=== PATIENT | female | born 1935 | race Caucasian/White ===

== ENCOUNTER 2017-05-02 12:21 | Inpatient (IN) ==
[2017-05-05] MEDS ORDERED: *HR* OxyCODONE/APAP 5/325 TABLET PO PRN (16:51)
--- NOTE | 2017-05-05 18:17 | Internal Med History&Physical ---
Date of Encounter: 05/05/17 Time of Encounter: 19:56 Assessment and Plan (1) History of total left hip arthroplasty Current visit: Yes Status: Acute she is here for PT, OT rehab (2) GERD (gastroesophageal reflux disease) Current visit: Yes Status: Acute will continue her pepcid Qualifiers: Esophagitis presence: esophagitis presence not specified Qualified Code(s) : K21.9 - Gastro-esophageal reflux disease without esophagitis (3) Femoral neck fracture Current visit: No Status: Acute s/p hip arthroplasty here for rehab Qualifiers: Encounter type: initial encounter Fracture type: closed Laterality: left Qualified Code(s): S72.002A - Fracture of unspecified part of neck of left femur, initial encounter for closed fracture (4) UTI (urinary tract infection) Current visit: No Status: Acute she grew psudomonas and sensitive to levaquin. on levaquin Qualifiers: Urinary tract infection type: acute cystitis Hematuria presence: with hematuria Qualified Code(s): N30.01 - Acute cystitis with hematuria (5) Essential hypertension Current visit: No Status: Chronic will continue home medication (6) Osteoporosis Current visit: No Status: Chronic will continue her calcium and her alendronate, will have to use with caution given the gastritis on EGD and anemia. Qualifiers: Osteoporosis type: age-related Presence of current pathological fracture: unspecified Qualified Code(s): M81.0 - Age-related osteoporosis without current pathological fracture (7) Rheumatoid arthritis Current visit: No Status: Chronic will continue prednisone, MTX and plaquanil Qualifiers: Rheumatoid arthritis location: multiple sites Rheumatoid factor presence: unspecified presence Qualified Code(s): M06.9 - Rheumatoid arthritis, unspecified (8) Acute blood loss anemia Current visit: No Status: Suspected s/p transfusion hg has been stable since had colonoscopy and egd with gastritis she was on iv ppi will put on po ppi and d/c zantac Internal Medicine - H&P: HPI Chief complaint: here for rehab Admitted From: Hospital to Hospital Transfer History of present illness: Ms. Hawthorne is a 82 year old female who had a fall with a left humeral fracture. she had a left total shoulder replacement on 04/19/17. she had fallen at home sweeping and was tangled in the cord. She had another fall at home going to her postop appt. she was in the doorway, heard a very loud crack, and had a left hip fracture and had a left hip arthroplasty on 04/29/17. she had post op anemia and had and egd and colonoscopy with colon polyps and gastris. she was given iv ppi at [place]. her hg remained stable after a transfusion. she also had a urine culture that grew pseudomonas sensitive to levaquin. she had one dose of iv levaquin yesterday and will continue po levaquin here. she had dysuria only one day, none now. just had a stool. pain is controlled Past Med Surg Social Fam HX - Past Medical History Medical history: arthritis (rheumatoid), GERD, hypertension, osteoporosis, RA, other (pulmonary fibrosis) Psychiatric history: no psych history - Past Surgical History Surgical History: , hysterectomy, orthopedic, other (wrist 1991, [facility] 2014 thumb fusion, 04/19/17 left shoulder replacement for fracture, 04/29/17 left hip arthroplasty ), other (05/03/17 EGD gastritis, 05/04/17 colonoscopy polyps ) - Social History Smoking Status: Never smoker Smokeless Tobacco Status: No Alcohol use: none Drug use: none - Family History Mother Living Status: Hx Family Cardiac Disorders: Yes (Hypertension) Hx Family Endocrine Disorder: Yes (dm2) Father Living Status: Age at : 100 Cause of : old age Internal Medicine - H&P: Meds Alendronate Sodium 70 mg PO SA 11/30/14 [History] Calcium Carbonate/Vitamin D3 [Calcium 600 + D Tablet] 1 each PO DAILY 11/30/14 [ History] Hydroxychloroquine [Plaquenuil] 200 mg PO DAILY 11/30/14 [History] Methotrexate [Otrexup] 7.5 mg PO SA 11/30/14 [History] PredniSONE 5 mg PO DAILY 11/30/14 [History] Ranitidine HCl [Zantac] 150 mg PO DAILY 11/30/14 [History] Calcium/Vit B12/FA/Pyridoxine [Folic Acid-Vit B6-Vit B12 Tab] 1 each PO DAILY [History] Losartan/Hydrochlorothiazide [Hyzaar 100-25 Tablet] 1 each PO DAILY 06/06/15 [ History] 3 Allergy/AdvReac Type Severity Reaction Status Date / Time No Known Allergies Allergy Verified 04/19/17 11:38 All Systems PM: A 10-system review of systems was performed and is negative for pertinent findings except as documented above in the HPI. here with her - Constitutional Constitutional: falls, no chills, no fever(s), no malaise, no weakness - EENT Eyes: no blurry vision, no change in vision - Cardiovascular Cardiovascular ROS IM: no chest pain, no dyspnea, no irregular heart rhythm, no orthopnea, no palpitations, no syncope - Respiratory Respiratory: no cough, no dyspnea, no wheezing - Gastrointestinal Gastrointestinal: no constipation, no hematochezia, no loose stools, no melena, no nausea, no vomiting - Genitourinary Genitourinary: no urinary incontinence - Musculoskeletal Musculoskeletal ROS IM: no muscle weakness - Integumentary Integumentary IM: no pruritus, no rash - Neurological Neurological ROS: no numbness - Psychiatric Psychiatric: no confusion - Constitutional Vitals: Temp Pulse Resp BP Pulse Ox 97.7 F 70 16 141/76 97 05/05/17 14:34 05/05/17 14:34 05/05/17 14:34 05/05/17 14:34 05/05/17 14:34 General appearance: Present: A&O X 3 - Head Head exam: Present: atraumatic, normocephalic - Neck Neck exam general surgery: Present: normal inspection, supple, trachea midline - Respiratory Respiratory exam: Present: CTAB - Cardiovascular Cardiovascular exam: Present: RRR. Absent: systolic murmur - GI/Abdominal GI/Abdominal exam: Present: normal bowel sounds, soft, no peritoneal signs. Absent: guarding, tenderness - Extremities Exam Extremities exam: Present: normal capillary refill, warm. Absent: pedal edema - Incison Incision: Present: clean and dry, intact (on the left shoulder and the left hip) - Skin Skin exam: Present: dry, normal color, warm. Absent: rash
[2017-05-05] MEDS: levoFLOXacin 500 MG TABLET PO SCH (21:26)
[2017-05-05] MEDS: Acetaminophen 325 MG TABLET PO PRN (21:27)
[2017-05-05] MEDS: *HR* OxyCODONE/APAP 5/325 TABLET PO PRN (23:01)
[2017-05-06 04:38] LABS: Basophils % 0.4 %; Eosinophils # 0.4 K/mcL (0.0-0.6); Eosinophils % 4.1 %; Hematocrit 30.1 % (35.3-44.9); Hemoglobin 9.8 g/dL (11.5-15.4); Immature Granulocytes % 3.7 % (0-4); Lymphocytes # 1.5 K/mcL (0.6-4.6); Lymphocytes % 17.1 %; Mean Corpuscular HGB Conc 32.6 g/dL (31.6-35.5); Mean Corpuscular Volume 104.5 fL (83.0-100.0); Mean Platelet Volume 8.8 fL (9.4-12.4); Monocytes # 1.2 K/mcL (0.0-1.3); Monocytes % 13.7 %; Neutrophils # 5.2 K/mcL (1.6-8.9); Platelet Count 266 K/mcL (140-400); Red Blood Count 2.88 M/mcL (3.82-4.97); Red Cell Distribution Width 15.2 % (11.5-14.5)
[2017-05-06 04:39] LABS: INR 1.1; Prothrombin Time 11.6 Seconds (9.4-12.1)
[2017-05-06 04:42] LABS: Activated Partial Thrombo Time 28.5 Seconds (26.0-36.0)
[2017-05-06 04:50] LABS: BUN/Creatinine Ratio 16 (6-26); Blood Urea Nitrogen 15 mg/dL (8-23); Calcium 8.8 mg/dL (8.6-10.3); Carbon Dioxide 28 mEq/L (23-29); Chloride 100 mEq/L (98-107); Glucose 101 mg/dL (70-105); Osmolality,Calculated 279 (280-300); Potassium 3.9 mEq/L (3.5-5.1); Sodium 134 mEq/L (136-145); eGFR For African Americans > 60 (> 60); eGFR For Non-African Americans 56 (> 60)
[2017-05-06] MEDS: *HR* OxyCODONE/APAP 5/325 TABLET PO PRN ×3 (06:45→21:54)
--- NOTE | 2017-05-06 07:06 | Internal Med Progress Note ---
Date of Encounter: 05/06/17 Time of Encounter: 07:05 - Assessment and plan (1) History of total left hip arthroplasty Current Visit: Yes Status: Acute Assessment and plan: Patient is a history of hip fracture and total hip arthroplasty now. She has Percocet every 4 hours for pain. She has started physical therapy. Transfer orders said she can be weightbearing as tolerated. (2) History of left shoulder fracture Current Visit: Yes Status: Acute Assessment and plan: Patient status post left shoulder fracture and reverse shoulder replacement. She has Percocet for pain. She is already started therapies. On the transfer orders it was requested "continue sling for left shoulder. Okay for passive range of motion exercises, forward elevation to 120 degrees, external rotation to 30 degrees. No internal rotation." (3) Rheumatoid arthritis Current Visit: Yes Status: Chronic Assessment and plan: Chronically she had with her arthritis, particularly of the hands. This certainly limits her ability to use a walker or cane equipment because of her hang grasp issues. Qualifiers: Rheumatoid arthritis location: multiple sites Rheumatoid factor presence: unspecified presence Qualified Code(s): M06.9 - Rheumatoid arthritis, unspecified (4) Essential hypertension Current Visit: No Status: Chronic Assessment and plan: Blood pressure is under adequate control. Continue her current medications (5) Osteoporosis Current Visit: No Status: Chronic Assessment and plan: continue continue with alendronate Qualifiers: Osteoporosis type: age-related Presence of current pathological fracture: unspecified Qualified Code(s): M81.0 - Age-related osteoporosis without current pathological fracture (6) Acute blood loss anemia Current Visit: No Status: Suspected Assessment and plan: Her hemoglobin is staying stable after her transfusion. It was reported that she had gastritis and colon polyps but no active hemorrhage. She was transferred to us on H2 jeremiah. She is now on PPI. No melena or hematochezia. No abdominal pain. (7) UTI (urinary tract infection) Current Visit: No Status: Acute Assessment and plan: She had a urine culture growing Pseudomonas. She denies any urinary symptoms. She is currently on Levaquin. Qualifiers: Urinary tract infection type: acute cystitis Hematuria presence: with hematuria Qualified Code(s): N30.01 - Acute cystitis with hematuria - Subjective Interval history: Patient thinks that she is doing well. She denies any cardiac or respiratory symptoms. No constipation issues at this time. She thinks the pain medication is adequate. She obviously has pain in the shoulder and the hip. She was pleased that she was able to walk with assistance around the bed yesterday with therapy. She denies any acute symptoms currently. - Constitutional Vitals: Temp Pulse Resp BP Pulse Ox 97.7 F 66 17 114/63 97 05/06/17 05:44 05/06/17 05:44 05/06/17 05:44 05/06/17 05:44 05/06/17 05:44 General appearance: Present: A&O X 3, no acute distress, answers questions appropriately - Respiratory Additional comments: Scattered fibrotic/ atelectatic-type crackles heard throughout. No respiratory distress. No wheezing. - Cardiovascular Cardiovascular exam: Present: RRR, +S1, +S2. Absent: systolic murmur - GI/Abdominal GI/Abdominal exam: Present: soft. Absent: distended, mass, tenderness - Extremities Exam Additional comments: Left shoulder shows dressing intact. Small amount of dried blood is noted. No significant bruising. Has appropriate tenderness. Good range of motion at the elbow. I did not remove the sling. Left lateral hip shows dressing to be intact with small amount of dried blood. No significant bruising. Has appropriate tenderness. There is no lower extremity edema. No calf tenderness. - Incison Comments: Left shoulder incision shows dressing intact and clean and dry. Left lateral hip incision shows dressing intact and clean and dry. Internal Medicine: Result - Labs CBC & Chem 7: 05/06/17 04:19 05/06/17 04:19 Labs: Short CBC 05/06/17 Range/Units 04:19 WBC 8.5 (4.3-11.1) K/mcL Hgb 9.8 L (11.5-15.4) g/dL Hct 30.1 L (35.3-44.9) % Plt Count 266 (140-400) K/mcL Neutrophils # 5.2 (1.6-8.9) K/mcL BMP 05/06/17 04:19 Sodium 134 L Potassium 3.9 Chloride 100 Carbon Dioxide 28 BUN 15 Creatinine 0.95 Glucose 101 Calcium 8.8 Hemoglobin is stable. Electrolytes and renal function unremarkable except for minimal hyponatremia. - ABG Interpretation ABG results: PT/INR, D-dimer PT 11.6 Seconds (9.4-12.1) 05/06/17 04:19 - VTE Documentation of Mechanical Device: Graduated compression elastic hosiery Consult Discharge Plan - Plan Referrals: Imer Marin MD [Primary Care Provider] -
[2017-05-06] MEDS ORDERED: Famotidine 20 MG TABLET PO SCH (09:00)
[2017-05-06] MEDS: Losartan/HCTZ 50-12.5 TABLET PO SCH (09:22)
[2017-05-06] MEDS: predniSONE 5 MG TABLET PO SCH (09:22)
[2017-05-06] MEDS: VIT B12 PO SCH (09:23)
[2017-05-06] MEDS: CALCIUM PO SCH (09:23)
[2017-05-06] MEDS: VITAMIN D3 PO SCH (09:23)
[2017-05-06] MEDS: PYRIDOXINE PO SCH (09:23)
[2017-05-06] MEDS: [UNRECOGNIZED DRUG - OTHER] PO SCH (09:23)
[2017-05-06] MEDS: CALCIUM CARBONATE PO SCH (09:23)
[2017-05-06] MEDS: *HR* Enoxaparin 40 MG/0.4 ML SYRINGE SQ SCH (21:53)
[2017-05-06] MEDS: levoFLOXacin 500 MG TABLET PO SCH (21:53)
[2017-05-07] MEDS: Acetaminophen 325 MG TABLET PO PRN (00:54)
[2017-05-07] MEDS: *HR* OxyCODONE/APAP 5/325 TABLET PO PRN ×5 (02:18→20:57)
[2017-05-07] MEDS: Losartan/HCTZ 50-12.5 TABLET PO SCH (10:44)
[2017-05-07] MEDS: predniSONE 5 MG TABLET PO SCH (10:45)
[2017-05-07] MEDS: VIT B12 PO SCH (10:45)
[2017-05-07] MEDS: *HR* Enoxaparin 40 MG/0.4 ML SYRINGE SQ SCH (10:45)
[2017-05-07] MEDS: CALCIUM CARBONATE PO SCH (10:45)
[2017-05-07] MEDS: [UNRECOGNIZED DRUG - OTHER] PO SCH (10:45)
[2017-05-07] MEDS: PYRIDOXINE PO SCH (10:45)
[2017-05-07] MEDS: VITAMIN D3 PO SCH (10:45)
[2017-05-07] MEDS: CALCIUM PO SCH (10:45)
--- NOTE | 2017-05-07 14:15 | Internal Med Progress Note ---
Date of Encounter: 05/07/17 Time of Encounter: 14:15 - Assessment and plan (1) Femoral neck fracture Current Visit: No Status: Acute Assessment and plan: Stable, postoperatively, without sign of complication. Qualifiers: Encounter type: initial encounter Fracture type: closed Laterality: left Qualified Code(s): S72.002A - Fracture of unspecified part of neck of left femur, initial encounter for closed fracture (2) Essential hypertension Current Visit: No Status: Chronic Assessment and plan: Clinically stable. We will continue home regimen and follow. (3) Rheumatoid arthritis Current Visit: Yes Status: Chronic Assessment and plan: Apparently stable on chronic regimen. Qualifiers: Rheumatoid arthritis location: multiple sites Rheumatoid factor presence: unspecified presence Qualified Code(s): M06.9 - Rheumatoid arthritis, unspecified (4) Acute blood loss anemia Current Visit: No Status: Suspected Assessment and plan: Stable. (5) LGI bleed Current Visit: No Status: Acute Assessment and plan: Stable on acid suppression. (6) DVT prophylaxis Current Visit: No Status: Resolved Assessment and plan: I discussed with Dr. Oro and we began enoxaparin. (7) History of left shoulder fracture Current Visit: Yes Status: Acute (8) Atelectasis Current Visit: Yes Status: Acute Assessment and plan: Advanced directive patient in deep breathing exercises as well as continued use of her incentive spirometry. - Time Spent With Patient 25 - 35 minutes - Subjective Interval history: Patient is without complaint or acute issues. Reviewed her clinical course with patient and family. No new issues. Patient has no complaint of chest discomfort, dyspnea, orthopnea, palpitations, nausea or vomiting, constipation or diarrhea, other changes in bowel habits, difficulty with urination, rash or itching, or other new complaints, except as mentioned above. Review of systems is otherwise unremarkable. - Constitutional Vitals: Temp Pulse Resp BP Pulse Ox 97.9 F 85 14 128/75 96 05/07/17 10:43 05/07/17 10:43 05/07/17 10:43 05/07/17 10:43 05/07/17 10:43 General appearance: Present: A&O X 3, no acute distress, answers questions appropriately Exam: Examination: (Except as mentioned above): General: In no apparent distress. Alert and oriented 3. Nondiaphoretic. Head: Atraumatic and normocephalic. Respiratory: No use of accessory muscles. She has left basilar rales. Normal airflow. Cardiovascular: Regular rate and rhythm without murmur appreciated. Abdomen: Bowel sounds are normal. No hepatosplenomegaly mass or tenderness appreciated. Patient is examined upright in chair and this also limits exam. Extremities: No cyanosis clubbing or edema. Skin: Warm and non-diaphoretic with no new lesions noted. Internal Medicine: Result - Labs CBC & Chem 7: 05/06/17 04:19 05/06/17 04:19 - ABG Interpretation ABG results: PT/INR, D-dimer PT 11.6 Seconds (9.4-12.1) 05/06/17 04:19 - VTE Documentation of Mechanical Device: Graduated compression elastic hosiery Consult Discharge Plan - Plan Referrals: Imer Marin MD [Primary Care Provider] -
[2017-05-07] MEDS ORDERED: (Alendronate Sodium [Alendronate Sodium] 70 MG) PO SCH (16:50)
[2017-05-07] MEDS ORDERED: *HR* Methotrexate 2.5 MG TABLET PO SCH ×2 (16:50)
[2017-05-07] MEDS: levoFLOXacin 250 MG TABLET PO SCH (20:57)
[2017-05-08] MEDS: *HR* OxyCODONE/APAP 5/325 TABLET PO PRN ×4 (00:33→21:18)
[2017-05-08] MEDS: *HR* Enoxaparin 40 MG/0.4 ML SYRINGE SQ SCH (05:30)
--- NOTE | 2017-05-08 07:32 | Internal Med Progress Note ---
Date of Encounter: 05/08/17 Time of Encounter: 07:30 - Assessment and plan (1) Femoral neck fracture Current Visit: No Status: Acute Assessment and plan: Stable, postoperatively, without sign of complication except atelectasis. Qualifiers: Encounter type: initial encounter Fracture type: closed Laterality: left Qualified Code(s): S72.002A - Fracture of unspecified part of neck of left femur, initial encounter for closed fracture (2) Essential hypertension Current Visit: No Status: Chronic Assessment and plan: Clinically stable. We will continue home regimen and follow. (3) Rheumatoid arthritis Current Visit: Yes Status: Chronic Assessment and plan: Apparently stable on chronic regimen. Qualifiers: Rheumatoid arthritis location: multiple sites Rheumatoid factor presence: unspecified presence Qualified Code(s): M06.9 - Rheumatoid arthritis, unspecified (4) Acute blood loss anemia Current Visit: No Status: Suspected Assessment and plan: Stable. Should have repeat labs, tomorrow. (5) LGI bleed Current Visit: No Status: Acute Assessment and plan: Stable on acid suppression. No symptoms, currently. (6) DVT prophylaxis Current Visit: No Status: Resolved Assessment and plan: She is on Lovenox. (7) History of left shoulder fracture Current Visit: Yes Status: Acute Assessment and plan: Clinically stable. Therapies to continue. (8) Atelectasis Current Visit: Yes Status: Acute Assessment and plan: I instructed patient in deep breathing exercises as well as continued use of her incentive spirometry, again. Because of her worsening rales at bases, we will verify no congestive heart failure or other pulmonary abnormality with a chest x-ray. - Time Spent With Patient 25 - 35 minutes - Subjective Interval history: Patient and nursing notes indicate that she is having significant pain with significant use of opioids. She has been using her incentive spirometry, as instructed, denies dyspnea or chest discomfort. She denies other acute issues. Patient has no complaint of chest discomfort, dyspnea, orthopnea, palpitations, nausea or vomiting, constipation or diarrhea, other changes in bowel habits, difficulty with urination, rash or itching, or other new complaints, except as mentioned above. Review of systems is otherwise unremarkable. - Constitutional Vitals: Temp Pulse Resp BP Pulse Ox 97.8 F 75 16 102/61 96 05/08/17 07:00 05/08/17 07:00 05/08/17 07:00 05/08/17 07:00 05/08/17 07:00 General appearance: Present: A&O X 3, no acute distress, answers questions appropriately Exam: Examination: (Except as mentioned above): General: In no apparent distress. Alert and oriented 3. Nondiaphoretic. Head: Atraumatic and normocephalic. Respiratory: No use of accessory muscles. Lungs now have bibasilar rales, worse on the left. Normal airflow. Cardiovascular: Regular rate and rhythm without murmur appreciated. Abdomen: Bowel sounds are normal. No hepatosplenomegaly mass or tenderness appreciated. Obese and therefore difficult to palpate deeply. Extremities: No cyanosis clubbing or edema. Left upper extremity is in a sling , as before. Distal neurovascular function is intact. Skin: Warm and non-diaphoretic with no new lesions noted. Internal Medicine: Result - Labs CBC & Chem 7: 05/06/17 04:19 05/06/17 04:19 - ABG Interpretation ABG results: PT/INR, D-dimer PT 11.6 Seconds (9.4-12.1) 05/06/17 04:19 - VTE Documentation of Mechanical Device: Graduated compression elastic hosiery Consult Discharge Plan - Plan Referrals: Imer Marin MD [Primary Care Provider] -
[2017-05-08] MEDS: CALCIUM CARBONATE PO SCH (08:32)
[2017-05-08] MEDS: VITAMIN D3 PO SCH (08:32)
[2017-05-08] MEDS: Losartan/HCTZ 50-12.5 TABLET PO SCH (08:36)
[2017-05-08] MEDS: PYRIDOXINE PO SCH (08:36)
[2017-05-08] MEDS: VIT B12 PO SCH (08:36)
[2017-05-08] MEDS: predniSONE 5 MG TABLET PO SCH (08:36)
[2017-05-08] MEDS: [UNRECOGNIZED DRUG - OTHER] PO SCH (08:36)
[2017-05-08] MEDS: CALCIUM PO SCH (08:36)
[2017-05-08] MEDS: levoFLOXacin 250 MG TABLET PO SCH (21:18)
[2017-05-09] MEDS: *HR* OxyCODONE/APAP 5/325 TABLET PO PRN ×3 (03:19→22:10)
[2017-05-09] MEDS: *HR* Enoxaparin 40 MG/0.4 ML SYRINGE SQ SCH (05:19)
--- NOTE | 2017-05-09 06:56 | Internal Med Progress Note ---
Date of Encounter: 05/09/17 Time of Encounter: 06:51 - Assessment and plan (1) History of total left hip arthroplasty Current Visit: Yes Status: Acute Assessment and plan: Status post left hip fracture and left total hip arthroplasty and doing well. Continue with her therapies. (2) History of left shoulder fracture Current Visit: Yes Status: Acute Assessment and plan: Status post left shoulder fracture and doing well. Still in the sling. Pain is under improved control. Continue with therapies. 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 Qualifiers: Rheumatoid arthritis location: multiple sites Rheumatoid factor presence: unspecified presence Qualified Code(s): M06.9 - Rheumatoid arthritis, unspecified (4) Essential hypertension Current Visit: No Status: Chronic Assessment and plan: Hypertension under good control. (5) Osteoporosis Current Visit: No Status: Chronic Qualifiers: Osteoporosis type: age-related Presence of current pathological fracture: unspecified Qualified Code(s): M81.0 - Age-related osteoporosis without current pathological fracture (6) Acute blood loss anemia Current Visit: No Status: Suspected Assessment and plan: We will recheck her hemoglobin tomorrow. (7) UTI (urinary tract infection) Current Visit: No Status: Acute Assessment and plan: Finishing a course of Levaquin for UTI. No fever. No urinary symptoms. Qualifiers: Urinary tract infection type: acute cystitis Hematuria presence: with hematuria Qualified Code(s): N30.01 - Acute cystitis with hematuria (8) DVT prophylaxis Current Visit: Yes Status: Acute Assessment and plan: Currently taking Lovenox for DVT prophylaxis - Subjective Interval history: Patient thinks he is doing very well. She told me that she has walked to therapy using a quad cane. She can partially dress herself. Her pain is under good control. The nurse states that the patient has been her biggest complain of pain is at night and needs two Percocet tablets. She denies any cardiac or respiratory symptoms. Her bowels are moving appropriately. She is getting up to the bathroom with assistance. She denies any pain in her calves or swelling. She does have left heel pain, keeping her heel off the bed has been helpful. Her biggest complaint is left shoulder pain and she states that the pain medication as well as a towel behind it has been helpful - Constitutional Vitals: Temp Pulse Resp BP Pulse Ox 97.9 F 83 17 137/90 100 05/08/17 19:03 05/08/17 19:03 05/08/17 19:03 05/08/17 19:03 05/08/17 19:03 General appearance: Present: A&O X 3, no acute distress, answers questions appropriately - Respiratory Additional comments: Slightly diminished breath sounds at the bases. No crackles or respiratory distress. No orthopnea. - Cardiovascular Cardiovascular exam: Present: RRR, +S1, +S2, systolic murmur (1 to 2/6 systolic murmur heard at the aortic outlet.) - GI/Abdominal GI/Abdominal exam: Present: soft. Absent: tenderness - Extremities Exam Extremities exam: Absent: calf tenderness, pedal edema, tenderness Additional comments: Both heels were evaluated and no skin breakdown or tenderness. Left shoulder shows incision clean and dry and still with the original dressing. She is in the sling. Left lower extremity shows incision to be clean and dry. Minimal dried drainage. No bruising. Appropriate tenderness. - Incison Comments: Both the left posterior shoulder and the left lateral hip incisions are covered with the original dressing. Minimal dried drainage. No signs of infection. Dressings intact. No redness or bruising. Internal Medicine: Result - Labs CBC & Chem 7: 05/06/17 04:19 05/06/17 04:19 - ABG Interpretation ABG results: PT/INR, D-dimer PT 11.6 Seconds (9.4-12.1) 05/06/17 04:19 - Impressions Impressions Chest X-Ray 05/08/17 07:35 IMPRESSION: Chronic bibasilar scarring/ fibrosis unchanged. No evidence of acute disease. D/ / Shantanu Dunbar MD / Shantanu Dunbar MD Interpreting Provider: Shantanu Dunbar MD - Diagnostic Studies Chest x-ray Additional comments: Chest x-ray showed no acute changes. - VTE Documentation of Mechanical Device: Graduated compression elastic hosiery Consult Discharge Plan - Plan Referrals: Imer Marin MD [Primary Care Provider] -
[2017-05-09] MEDS: [UNRECOGNIZED DRUG - OTHER] PO SCH (09:49)
[2017-05-09] MEDS: VIT B12 PO SCH (09:49)
[2017-05-09] MEDS: CALCIUM PO SCH (09:49)
[2017-05-09] MEDS: CALCIUM CARBONATE PO SCH (09:49)
[2017-05-09] MEDS: PYRIDOXINE PO SCH (09:49)
[2017-05-09] MEDS: Losartan/HCTZ 50-12.5 TABLET PO SCH (09:49)
[2017-05-09] MEDS: VITAMIN D3 PO SCH (09:49)
[2017-05-09] MEDS: predniSONE 5 MG TABLET PO SCH (09:50)
[2017-05-09] MEDS: levoFLOXacin 250 MG TABLET PO SCH (22:10)
[2017-05-10] MEDS: *HR* OxyCODONE/APAP 5/325 TABLET PO PRN ×4 (02:24→21:27)
[2017-05-10 05:41] LABS: Basophils % 0.3 %; Eosinophils # 0.2 K/mcL (0.0-0.6); Hematocrit 28.9 % (35.3-44.9); Hemoglobin 9.6 g/dL (11.5-15.4); Immature Granulocytes % 1.9 % (0-4); Lymphocytes # 1.7 K/mcL (0.6-4.6); Lymphocytes % 22.6 %; Mean Corpuscular HGB Conc 33.2 g/dL (31.6-35.5); Mean Corpuscular Hemoglobin 33.8 pg (28.0-33.3); Mean Corpuscular Volume 101.8 fL (83.0-100.0); Mean Platelet Volume 8.9 fL (9.4-12.4); Monocytes # 1.1 K/mcL (0.0-1.3); Monocytes % 15.3 %; Neutrophils # 4.2 K/mcL (1.6-8.9); Platelet Count 289 K/mcL (140-400); Red Blood Count 2.84 M/mcL (3.82-4.97); Red Cell Distribution Width 14.4 % (11.5-14.5); Segmented Neutrophils % 56.9 %
[2017-05-10 05:45] LABS: INR 1.1; Prothrombin Time 11.3 Seconds (9.4-12.1)
[2017-05-10 05:47] LABS: Activated Partial Thrombo Time 29.9 Seconds (26.0-36.0)
[2017-05-10 05:57] LABS: BUN/Creatinine Ratio 23 (6-26); Blood Urea Nitrogen 19 mg/dL (8-23); Calcium 8.7 mg/dL (8.6-10.3); Carbon Dioxide 29 mEq/L (23-29); Chloride 95 mEq/L (98-107); Glucose 97 mg/dL (70-105); Osmolality,Calculated 270 (280-300); Potassium 3.4 mEq/L (3.5-5.1); Sodium 129 mEq/L (136-145); eGFR For African Americans > 60 (> 60); eGFR For Non-African Americans > 60 (> 60)
[2017-05-10] MEDS: *HR* Enoxaparin 40 MG/0.4 ML SYRINGE SQ SCH (06:35)
[2017-05-10] MEDS: Losartan/HCTZ 50-12.5 TABLET PO SCH (08:06)
[2017-05-10] MEDS: predniSONE 5 MG TABLET PO SCH (08:06)
[2017-05-10] MEDS: PYRIDOXINE PO SCH (08:07)
[2017-05-10] MEDS: VITAMIN D3 PO SCH (08:07)
[2017-05-10] MEDS: [UNRECOGNIZED DRUG - OTHER] PO SCH (08:07)
[2017-05-10] MEDS: VIT B12 PO SCH (08:07)
[2017-05-10] MEDS: CALCIUM CARBONATE PO SCH (08:07)
[2017-05-10] MEDS: CALCIUM PO SCH (08:07)
--- NOTE | 2017-05-10 08:28 | Internal Med Progress Note ---
Date of Encounter: 05/10/17 Time of Encounter: 08:30 - Assessment and plan (1) History of total left hip arthroplasty Current Visit: Yes Status: Acute Assessment and plan: Advancing nicely with the therapies for hip and shoulder. Transferred to rehabilitation unit today. Pain is under adequate control. (2) History of left shoulder fracture Current Visit: Yes Status: Acute Assessment and plan: Advancing well. Continues in the sling. Transfer to full rehabilitation today. (3) Rheumatoid arthritis Current Visit: Yes Status: Chronic Assessment and plan: No acute changes. Continues with her chronic medication. Qualifiers: Rheumatoid arthritis location: multiple sites Rheumatoid factor presence: unspecified presence Qualified Code(s): M06.9 - Rheumatoid arthritis, unspecified (4) Essential hypertension Current Visit: No Status: Chronic Assessment and plan: Blood pressure has been a bit low the past few readings. Also, with hyponatremia and hypokalemia we will hold the hydrochlorothiazide portion and continue the losartan. (5) Osteoporosis Current Visit: No Status: Chronic Qualifiers: Osteoporosis type: age-related Presence of current pathological fracture: unspecified Qualified Code(s): M81.0 - Age-related osteoporosis without current pathological fracture (6) Acute blood loss anemia Current Visit: No Status: Suspected Assessment and plan: Her hemoglobin is staying stable now. (7) UTI (urinary tract infection) Current Visit: No Status: Resolved Assessment and plan: She has been on Levaquin long enough. This was discontinued. She has no urinary symptoms. Qualifiers: Urinary tract infection type: acute cystitis Hematuria presence: with hematuria Qualified Code(s): N30.01 - Acute cystitis with hematuria (8) Hyponatremia Current Visit: Yes Status: Acute Assessment and plan: Mild hyponatremia. We will hold her hydrochlorothiazide and recheck in a few days. (9) Hypokalemia Current Visit: Yes Status: Acute Assessment and plan: Mild hypokalemia and we will hold her hydrochlorothiazide and recheck in a few days. (10) DVT prophylaxis Current Visit: Yes Status: Acute - Subjective Interval history: Patient thinks that she is doing well. Intermittently she will have pain or tingling into her elbow and hand. She denies any weakness. Therapy is working with her hand and elbow. She states her pain seems to be under good control overall. She is advancing such that she will be switched from swing bed to full rehabilitation bed today. She denies any cardiac or respiratory symptoms. Denies any GI symptoms. She is eating well and bowels are moving. No urinary symptoms. Nurses report no issues regarding her incision or transfers or medical issues - Constitutional Vitals: Temp Pulse Resp BP Pulse Ox 97.9 F 69 16 113/64 95 05/10/17 07:00 05/10/17 07:00 05/10/17 07:00 05/10/17 07:00 05/10/17 07:00 General appearance: Present: A&O X 3, no acute distress, answers questions appropriately Exam: She was in the dining room, dressed and enjoying breakfast. She is alert and appropriate. I did not do a more formal examination. Internal Medicine: Result - Labs CBC & Chem 7: 05/10/17 05:20 05/10/17 05:20 Labs: Short CBC 05/10/17 Range/Units 05:20 WBC 7.4 (4.3-11.1) K/mcL Hgb 9.6 L (11.5-15.4) g/dL Hct 28.9 L (35.3-44.9) % Plt Count 289 (140-400) K/mcL Neutrophils # 4.2 (1.6-8.9) K/mcL BMP 05/10/17 05:20 Sodium 129 L Potassium 3.4 L Chloride 95 L Carbon Dioxide 29 BUN 19 Creatinine 0.84 Glucose 97 Calcium 8.7 Labs have been reviewed. Hemoglobin is stable. Sodium and potassium are down a bit. Hydrochlorothiazide will be held. - ABG Interpretation ABG results: PT/INR, D-dimer PT 11.3 Seconds (9.4-12.1) 05/10/17 05:20 - VTE Documentation of Mechanical Device: Graduated compression elastic hosiery Consult Discharge Plan - Plan Referrals: Imer Marin MD [Primary Care Provider] -
[2017-05-11] MEDS: *HR* OxyCODONE/APAP 5/325 TABLET PO PRN (04:47)
[2017-05-11] MEDS: *HR* Enoxaparin 40 MG/0.4 ML SYRINGE SQ SCH (09:04)
[2017-05-11] MEDS: CALCIUM CARBONATE PO SCH (09:05)
[2017-05-11] MEDS: VITAMIN D3 PO SCH (09:05)
[2017-05-11] MEDS: CALCIUM PO SCH (09:06)
[2017-05-11] MEDS: VIT B12 PO SCH (09:06)
[2017-05-11] MEDS: [UNRECOGNIZED DRUG - OTHER] PO SCH (09:06)
[2017-05-11] MEDS: PYRIDOXINE PO SCH (09:06)
[2017-05-11] MEDS: predniSONE 5 MG TABLET PO SCH (09:06)
--- NOTE | 2017-05-11 09:35 | Internal Med Progress Note ---
Date of Encounter: 05/11/17 Time of Encounter: 09:30 - Assessment and plan (1) History of total left hip arthroplasty Current Visit: Yes Status: Acute Assessment and plan: She is progressing well with her therapies and increasing her ADLs. Tentative plans for discharge Tuesday. Pain is under good control. (2) History of left shoulder fracture Current Visit: Yes Status: Acute Assessment and plan: Left shoulder incision is healing nicely. She continues to be in her sling. She is able to dress herself and dress herself. Pain is under good control. (3) Rheumatoid arthritis Current Visit: Yes Status: Chronic Qualifiers: Rheumatoid arthritis location: multiple sites Rheumatoid factor presence: unspecified presence Qualified Code(s): M06.9 - Rheumatoid arthritis, unspecified (4) Essential hypertension Current Visit: Yes Status: Chronic Assessment and plan: Blood pressure is under good control. It was a bit low but hydrochlorothiazide was eliminated from her meds. We will continue to monitor (5) Osteoporosis Current Visit: No Status: Chronic Qualifiers: Osteoporosis type: age-related Presence of current pathological fracture: unspecified Qualified Code(s): M81.0 - Age-related osteoporosis without current pathological fracture (6) Acute blood loss anemia Current Visit: No Status: Suspected Assessment and plan: Last hemoglobin was stable. Follow-up again tomorrow. (7) Hyponatremia Current Visit: Yes Status: Acute Assessment and plan: Repeat sodium for tomorrow. Hydrochlorothiazide was discontinued. (8) Hypokalemia Current Visit: Yes Status: Acute Assessment and plan: Hydrochlorothiazide was discontinued. Follow-up potassium tomorrow (9) DVT prophylaxis Current Visit: Yes Status: Acute Assessment and plan: Continues with Lovenox. - Subjective Interval history: Patient is very happy that she is advancing so nicely. She is able to dress herself and undress herself. She practiced getting in and out of a tub/shower today. She is determined to go home on Tuesday. She denies any medical symptoms of chest pain, palpitations, irregular heartbeat , dyspnea, cough, fever or chills. She is eating well. Bowels and bladder are doing well. Pain is under adequate control. Last night was the best night ever regarding her nocturnal pain at the elbow and numbness and tingling into the left hand. - Constitutional Vitals: Temp Pulse Resp BP Pulse Ox 98.0 F 64 18 121/69 97 05/11/17 07:00 05/11/17 07:00 05/11/17 07:00 05/11/17 07:00 05/11/17 07:00 General appearance: Present: A&O X 3, no acute distress, answers questions appropriately - Respiratory Respiratory exam: Present: CTAB - Cardiovascular Cardiovascular exam: Present: RRR, +S1, +S2. Absent: systolic murmur - Extremities Exam Extremities exam: Absent: calf tenderness, pedal edema, tenderness - Skin Additional comments: Left shoulder incision looks great. Clean and dry and intact. No bleeding. No bruising. Left lateral hip incision shows dressing to be intact. Old dried blood is noted. No new changes. No signs of infection or bruising. Internal Medicine: Result - Labs CBC & Chem 7: 05/10/17 05:20 05/10/17 05:20 - ABG Interpretation ABG results: PT/INR, D-dimer PT 11.3 Seconds (9.4-12.1) 05/10/17 05:20 - VTE Documentation of Mechanical Device: Graduated compression elastic hosiery Consult Discharge Plan - Plan Referrals: Imer Marin MD [Primary Care Provider] -
[2017-05-12] MEDS: *HR* OxyCODONE/APAP 5/325 TABLET PO PRN ×4 (04:52→21:46)
[2017-05-12 04:59] LABS: Basophils % 0.3 %; Eosinophils # 0.2 K/mcL (0.0-0.6); Eosinophils % 2.3 %; Hematocrit 29.3 % (35.3-44.9); Hemoglobin 9.8 g/dL (11.5-15.4); Immature Granulocytes % 1.7 % (0-4); Lymphocytes # 0.9 K/mcL (0.6-4.6); Lymphocytes % 13.8 %; Mean Corpuscular HGB Conc 33.4 g/dL (31.6-35.5); Mean Corpuscular Volume 101.7 fL (83.0-100.0); Mean Platelet Volume 8.5 fL (9.4-12.4); Monocytes % 16.3 %; Neutrophils # 4.2 K/mcL (1.6-8.9); Platelet Count 313 K/mcL (140-400); Red Blood Count 2.88 M/mcL (3.82-4.97); Red Cell Distribution Width 14.6 % (11.5-14.5); Segmented Neutrophils % 65.6 %
[2017-05-12 05:13] LABS: BUN/Creatinine Ratio 22 (6-26); Blood Urea Nitrogen 15 mg/dL (8-23); Carbon Dioxide 30 mEq/L (23-29); Chloride 100 mEq/L (98-107); Glucose 100 mg/dL (70-105); Osmolality,Calculated 279 (280-300); Potassium 4.3 mEq/L (3.5-5.1); Sodium 134 mEq/L (136-145); eGFR For African Americans > 60 (> 60); eGFR For Non-African Americans > 60 (> 60)
[2017-05-12] MEDS: CALCIUM PO SCH (10:21)
[2017-05-12] MEDS: [UNRECOGNIZED DRUG - OTHER] PO SCH (10:21)
[2017-05-12] MEDS: VITAMIN D3 PO SCH (10:21)
[2017-05-12] MEDS: *HR* Enoxaparin 40 MG/0.4 ML SYRINGE SQ SCH (10:21)
[2017-05-12] MEDS: predniSONE 5 MG TABLET PO SCH (10:21)
[2017-05-12] MEDS: PYRIDOXINE PO SCH (10:21)
[2017-05-12] MEDS: VIT B12 PO SCH (10:21)
[2017-05-12] MEDS: CALCIUM CARBONATE PO SCH (10:21)
--- NOTE | 2017-05-12 11:47 | Internal Med Progress Note ---
Date of Encounter: 05/12/17 Time of Encounter: 11:46 - Assessment and plan (1) History of total left hip arthroplasty Current Visit: Yes Status: Acute Assessment and plan: She is doing well regarding her hip surgery. Advancing with her therapies. Plan for discharge Tuesday. Will require home health and home PT and OT. (2) History of left shoulder fracture Current Visit: Yes Status: Acute Assessment and plan: She is doing well with her left shoulder fracture and surgery. She continues in a sling. Advancing with her therapies well. Plan for discharge tomorrow. (3) Rheumatoid arthritis Current Visit: Yes Status: Chronic Qualifiers: Rheumatoid arthritis location: multiple sites Rheumatoid factor presence: unspecified presence Qualified Code(s): M06.9 - Rheumatoid arthritis, unspecified (4) Essential hypertension Current Visit: Yes Status: Chronic Assessment and plan: Blood pressure is under adequate control. Previously it was a bit low, improved after stopping hydrochlorothiazide. Continue the same medicine for now. (5) Osteoporosis Current Visit: No Status: Chronic Qualifiers: Osteoporosis type: age-related Presence of current pathological fracture: unspecified Qualified Code(s): M81.0 - Age-related osteoporosis without current pathological fracture (6) Acute blood loss anemia Current Visit: No Status: Suspected Assessment and plan: Hemoglobin is stable. (7) Hyponatremia Current Visit: Yes Status: Acute Assessment and plan: Hyponatremia resolving after stopping the hydrochlorothiazide (8) Hypokalemia Current Visit: Yes Status: Acute Assessment and plan: Hypokalemia resolving after stopping the hydrochlorothiazide (9) DVT prophylaxis Current Visit: Yes Status: Acute - Subjective Interval history: Patient states that she is doing well. She is looking forward to going home tomorrow. Her pain is under good control with minimal amount of medication. She denies a cardiac respiratory symptoms. No bowel or bladder problems. - Constitutional Vitals: Temp Pulse Resp BP Pulse Ox 98.0 F 89 16 122/67 94 05/12/17 07:00 05/12/17 07:00 05/12/17 07:00 05/12/17 07:00 05/12/17 07:00 General appearance: Present: A&O X 3, no acute distress, answers questions appropriately - Respiratory Respiratory exam: Present: CTAB - Cardiovascular Cardiovascular exam: Present: RRR, +S1, +S2 - GI/Abdominal GI/Abdominal exam: Present: soft. Absent: tenderness - Extremities Exam Extremities exam: Absent: calf tenderness, pedal edema Additional comments: Left arm is in a sling. - Incison Comments: I did not check her incisions today. Nurse reported that they are doing well. Internal Medicine: Result - Labs CBC & Chem 7: 05/12/17 04:52 05/12/17 04:52 Labs: Short CBC 05/12/17 Range/Units 04:52 WBC 6.4 (4.3-11.1) K/mcL Hgb 9.8 L (11.5-15.4) g/dL Hct 29.3 L (35.3-44.9) % Plt Count 313 (140-400) K/mcL Neutrophils # 4.2 (1.6-8.9) K/mcL BMP 05/12/17 04:52 Sodium 134 L Potassium 4.3 Chloride 100 Carbon Dioxide 30 H BUN 15 Creatinine 0.67 Glucose 100 Calcium 9.0 Hemoglobin is stable. Electrolytes and renal function normalizing. - ABG Interpretation ABG results: PT/INR, D-dimer PT 11.3 Seconds (9.4-12.1) 05/10/17 05:20 - VTE Documentation of Mechanical Device: Graduated compression elastic hosiery Consult Discharge Plan - Plan Referrals: Imer Marin MD [Primary Care Provider] -
[2017-05-12] MEDS: Acetaminophen 325 MG TABLET PO PRN (23:56)
[2017-05-13] MEDS: *HR* OxyCODONE/APAP 5/325 TABLET PO PRN ×2 (02:49→08:40)
[2017-05-13] MEDS: Acetaminophen 325 MG TABLET PO PRN (05:43)
--- NOTE | 2017-05-13 07:10 | Discharge Summary ---
- NOTES TO OUTPATIENT PROVIDER Notes to Outpatient Provider: #1. Patient has an appointment with Dr. Valero on 05/18/17. #2. She is to follow-up with Dr. Marin in 3-4 weeks. #3 Home Health with home PT and OT to be arranged Date of Encounter: 05/13/17 Time of Encounter: 06:58 - Discharge Diagnosis (1) History of total left hip arthroplasty Priority: Primary Status: Acute Comments: Patient was admitted to swing bed and then advanced to Rehabilitation bed having had left hip fracture and total hip replacement per Dr. Valero. She has advanced very nicely with her therapies despite also having had left shoulder fracture shoulder replacement and also having chronic rheumatoid arthritis in her hands. She requires 4-6 Percocet per day for control of pain. Her incisions are healing nicely. She has advanced with her therapies and ADLs to the point where it is safe to send her home with home health and home PT and OT. She will continue with aspirin 325 twice a day for up to a month. She has follow-up appointment with Dr. Valero on 05/18/17 (2) History of left shoulder fracture Priority: Secondary Status: Acute Comments: Patient sustained a fall and fracture of the left shoulder and had shoulder replacement. She is in a sling with limited mobility. She has undergone PT and OT in a swing bed then advanced to full Rehabilitation bed. She will be discharged from home today as she has advanced with her therapies to the point where she is able to dress and undress herself, do her daily ADLs and personal care. She will continue at home with home health and PT and OT. She is using Percocet for pain control using up to 4-6 per day (3) Rheumatoid arthritis Priority: Secondary Status: Chronic Comments: Chronically she has rheumatoid arthritis which hinders particularly her hands. She is able to use a quad cane and able to regain most of her ADLs despite her hip fracture and shoulder fracture. Her rheumatoid arthritis medications were continued. Qualifiers: Rheumatoid arthritis location: multiple sites Rheumatoid factor presence: unspecified presence Qualified Code(s): M06.9 - Rheumatoid arthritis, unspecified (4) Essential hypertension Priority: Secondary Status: Chronic Comments: Chronic she she has hypertension. She was taking Hyzaar/losartan hydrochlorothiazide. Her blood pressure was a bit on the low side and also she developed hyponatremia and hypokalemia. We changed the medication to losartan without hydrochlorothiazide and her blood pressures are now normal and her electrolytes and renal function are good. She will be discharged on losartan. We will adjust further in the office. (5) Osteoporosis Priority: Secondary Status: Chronic Comments: Patient has a history of osteoporosis. She continues with her alendronate weekly. Qualifiers: Osteoporosis type: age-related Presence of current pathological fracture: unspecified Qualified Code(s): M81.0 - Age-related osteoporosis without current pathological fracture (6) Acute blood loss anemia Priority: Secondary Status: Acute Comments: Patient had post operative anemia as expected. Her hemoglobin is stable in the 9.6-9.8 range. She did not require any blood transfusion in our facility. We will recheck at a later date (7) Hyponatremia Priority: Secondary Status: Resolved Comments: Patient developed mild hyponatremia during this stay. We discontinued her hydrochlorothiazide and her labs are normalizing. (8) Hypokalemia Priority: Secondary Status: Resolved Comments: Patient developed hypokalemia during this hospital stay and we discontinue her hydrochlorothiazide. Her potassium is now normal. We will reevaluate as an outpatient later. (9) DVT prophylaxis Priority: Secondary Status: Resolved Comments: During her hospital stay she was on Lovenox. At home she will be on aspirin 325 twice a day for a total of [address] Valero's recommendation Hospital course: Ms. Hawthorne is a 82 year old female admitted to [facility] first in a swing bed and then advanced to a full rehabilitation bed with her history of left shoulder fracture and repair and then left hip fracture and repair. She has comorbidities of having hypertension and rheumatoid arthritis. Please see the above diagnoses. She did extremely well and advanced through her therapies well. She remained medically stable during the course except having developed hyponatremia and hypokalemia which resolved with stopping her hydrochlorothiazide. She will be discharged to home today with home health and home PT and OT. She will follow-up in the office with me in 3-4 weeks. She has a follow-up appointment with orthopedist next week - Time Spent with Patient Total time spent providing and/or coordinating discharge services: - Discharge Medications Prescriptions: Albuterol Sulfate 2.5 mg IH Q4HR PRN #1 vial.neb PRN Reason: Wheezing OxyCODONE/APAP 5/325 [Percocet 5/325 MG] 1 - 2 each PO Q6HR PRN 7 Days #60 tablet PRN Reason: Severe Pain Albuterol Sulfate [Proair Hfa] 1 puff IH Q4-6H PRN #1 inh PRN Reason: Wheezing Aspirin Enteric Coated [Aspirin EC] 325 mg PO BID #60 tablet. Loratadine [Allergy Relief] 10 mg PO DAILY PRN #1 tablet PRN Reason: Allergy Symptoms Losartan [Cozaar] 100 mg PO DAILY #30 tablet Home Medications: Alendronate Sodium 70 mg PO SA 11/30/14 [History] Calcium Carbonate/Vitamin D3 [Calcium 600 + D Tablet] 1 each PO DAILY 11/30/14 [ History] Hydroxychloroquine [Plaquenuil] 200 mg PO DAILY 11/30/14 [History] Methotrexate [Otrexup] 7.5 mg PO SA 11/30/14 [History] PredniSONE 5 mg PO DAILY 11/30/14 [History] Ranitidine HCl [Zantac] 150 mg PO DAILY 11/30/14 [History] Calcium/Vit B12/FA/Pyridoxine [Folic Acid-Vit B6-Vit B12 Tab] 1 each PO DAILY [History] Acetaminophen [Tylenol] 650 mg PO Q6HR PRN tablet 05/13/17 [Rx] Albuterol Sulfate 2.5 mg IH Q4HR PRN #1 vial.devante 05/13/17 [Rx] Albuterol Sulfate [Proair Hfa] 1 puff IH Q4-6H PRN #1 inh 05/13/17 [Rx] Aspirin Enteric Coated [Aspirin EC] 325 mg PO BID #60 tablet. 05/13/17 [Rx] Loratadine [Allergy Relief] 10 mg PO DAILY PRN #1 tablet 05/13/17 [Rx] Losartan [Cozaar] 100 mg PO DAILY #30 tablet 05/13/17 [Rx] OxyCODONE/APAP 5/325 [Percocet 5/325 MG] 1 - 2 each PO Q6HR PRN 7 Days #60 tablet 05/13/17 [Rx] Allergies/Adverse Reactions: 3 Allergy/AdvReac Type Severity Reaction Status Date / Time No Known Allergies Allergy Verified 04/19/17 11:38 Date of admission: 05/05/17 14:29 Primary care physician: Imer Marin MD Consults: 05/05/17 16:53 Consult to Occupational Therapy [CONS] Routine Comment: left femoral neck fracture Reason for Consult: eval and treat Does patient have active BEDREST order?: No Is patient medically & hemodynamically stable?: Yes Patient assessed for mobility or mobilized this visit?: Yes Consult to Physical Therapy [CONS] Routine Comment: Left femoral neck fracture Reason for Consult: Eval and treat Does patient have active BEDREST order?: No Is patient medically & hemodynamically stable?: Yes Patient assessed for mobility or mobilized this visit?: No 05/05/17 16:56 Consult to Physical Medicine/Rehab [CONS] Routine Reason for Consult: Left femoral neck fracture Call Completed: No Discharging clinician: Imer Marin Anticipated date of discharge: 05/13/17 - Constitutional Vitals: Temp Pulse Resp BP Pulse Ox 97.6 F 101 18 124/63 97 05/12/17 19:00 05/12/17 19:00 05/12/17 19:00 05/12/17 19:00 05/12/17 19:00 General appearance: Present: A&O X 3, no acute distress, answers questions appropriately - Respiratory Respiratory exam: Present: CTAB - Cardiovascular Cardiovascular exam: Present: RRR, +S1 - GI/Abdominal GI/Abdominal exam: Present: soft. Absent: tenderness - Extremities Exam Extremities exam: Absent: calf tenderness, pedal edema, tenderness Additional comments: Left upper extremity is in a sling. - Incison Comments: Both incisions show the initial dressing to be intact and dry. Minimal drainage noted on the dressing in the hip region. There is no signs of secondary infection or bleeding or bruising. - Patient Status Disposition: Home Health Service Condition: Good Functional capacity at discharge: uses cane/walker Overall status at discharge: patient is not back to baseline - Discharge Instructions Follow Up With: Imer Marin MD [Primary Care Provider] - (Follow-up in the office in 3-4 weeks) - Diet and Activity Activity: as per physical therapy Diet: low salt diet - VTE Documentation of Mechanical Device: Graduated compression elastic hosiery
[2017-05-13 07:11] VITALS: BP 113/77
--- NOTE | 2017-05-13 07:41 | Physician Discharge Referral ---
Home Health/Hosp Referral Info Transfer to: Home Health Provider in Charge Post Discharge: PCP () - Diagnosis (1) History of total left hip arthroplasty Priority: Primary Status: Acute (2) History of left shoulder fracture Priority: Secondary Status: Acute (3) Rheumatoid arthritis Priority: Secondary Status: Chronic (4) Essential hypertension Priority: Secondary Status: Chronic (5) Osteoporosis Priority: Secondary Status: Chronic (6) Acute blood loss anemia Priority: Secondary Status: Acute (7) Hyponatremia Priority: Secondary Status: Resolved (8) Hypokalemia Priority: Secondary Status: Resolved (9) DVT prophylaxis Priority: Secondary Status: Resolved - Respiratory Orders Smoking Cessation: Smoking cessation has been advised. For more information, call the [employer] Tobacco Quit Line at 5-524-UDMA-NOW. - Dressing/Wound Care Site: Evaluate dressing in the left shoulder and left lateral hip - Diet/Nutrition Diet/Nutrition Orders: No Added Salt (RADHA) - Activity Activity Orders: Ambulate (With quad cane) - Services Needed Following services are medically necessary services: Nursing, Home Health Aide, Physical Therapy, Occupational Therapy - Transfer Medications Prescriptions: Albuterol Sulfate 2.5 mg IH Q4HR PRN #1 vial.neb PRN Reason: Wheezing OxyCODONE/APAP 5/325 [Percocet 5/325 MG] 1 - 2 each PO Q6HR PRN 7 Days #60 tablet PRN Reason: Severe Pain Albuterol Sulfate [Proair Hfa] 1 puff IH Q4-6H PRN #1 inh PRN Reason: Wheezing Aspirin Enteric Coated [Aspirin EC] 325 mg PO BID #60 tablet. Loratadine [Allergy Relief] 10 mg PO DAILY PRN #1 tablet PRN Reason: Allergy Symptoms Losartan [Cozaar] 100 mg PO DAILY #30 tablet Home Medications: Alendronate Sodium 70 mg PO SA 11/30/14 [History] Calcium Carbonate/Vitamin D3 [Calcium 600 + D Tablet] 1 each PO DAILY 11/30/14 [ History] Hydroxychloroquine [Plaquenuil] 200 mg PO DAILY 11/30/14 [History] Methotrexate [Otrexup] 7.5 mg PO SA 11/30/14 [History] PredniSONE 5 mg PO DAILY 11/30/14 [History] Ranitidine HCl [Zantac] 150 mg PO DAILY 11/30/14 [History] Calcium/Vit B12/FA/Pyridoxine [Folic Acid-Vit B6-Vit B12 Tab] 1 each PO DAILY [History] Acetaminophen [Tylenol] 650 mg PO Q6HR PRN tablet 05/13/17 [Rx] Albuterol Sulfate 2.5 mg IH Q4HR PRN #1 vial.neb 05/13/17 [Rx] Albuterol Sulfate [Proair Hfa] 1 puff IH Q4-6H PRN #1 inh 05/13/17 [Rx] Aspirin Enteric Coated [Aspirin EC] 325 mg PO BID #60 tablet. 05/13/17 [Rx] Loratadine [Allergy Relief] 10 mg PO DAILY PRN #1 tablet 05/13/17 [Rx] Losartan [Cozaar] 100 mg PO DAILY #30 tablet 05/13/17 [Rx] OxyCODONE/APAP 5/325 [Percocet 5/325 MG] 1 - 2 each PO Q6HR PRN 7 Days #60 tablet 05/13/17 [Rx] Allergies/Adverse Reactions: 3 Allergy/AdvReac Type Severity Reaction Status Date / Time No Known Allergies Allergy Verified 04/19/17 11:38 Certification: Further, I certify that my clinical findings support that this patient is homebound (i.e. absences from home require considerable and taxing effort and are for medical reasons or oriental orthodox services or infrequently or short duration when for other reasons) because: Homebound Reason: Patient requires assistance of a person or device to safely leave home, Post-surgery restriction and or conditions limit ability to leave home, Leaving home requires considerable and taxing effort due to condition Attestation: My signature below is to certify that this patient is under my care and that I, or nurse practitioner, or a physician's medical staff assistant working with me, has a face-to -face encounter with this patient.
[2017-05-13] MEDS: *HR* Enoxaparin 40 MG/0.4 ML SYRINGE SQ SCH (08:39)
[2017-05-13] MEDS: CALCIUM PO SCH (08:40)
[2017-05-13] MEDS: predniSONE 5 MG TABLET PO SCH (08:40)
[2017-05-13] MEDS: [UNRECOGNIZED DRUG - OTHER] PO SCH (08:40)
[2017-05-13] MEDS: CALCIUM CARBONATE PO SCH (08:40)
[2017-05-13] MEDS: VIT B12 PO SCH (08:40)
[2017-05-13] MEDS: PYRIDOXINE PO SCH (08:40)
[2017-05-13] MEDS: VITAMIN D3 PO SCH (08:40)
== END 2017-05-13 15:00 | disposition home health service (06) | DRG 560 ==
LOC: INPGRE 05-05 14:29
PROVIDERS: ADMIT Family Medicine; ATTEND Family Medicine

== ENCOUNTER 2018-09-22 21:01 | Inpatient (IN) ==
[2018-09-22] MEDS ORDERED: Ipratropium/Albuterol Neb 3 ML ONE (21:09)
[2018-09-22] MEDS ORDERED: methylPREDNISolone 125 MG/2 ML VIAL IVP ONE (21:16)
[2018-09-22] MEDS ORDERED: Ipratropium/Albuterol Neb 3 ML IH ONE ×2 (21:16→22:24)
[2018-09-22 21:46] LABS: Basophils % 0.1 %; Eosinophils % 0.1 %; Hematocrit 40.1 % (35.3-44.9); Hemoglobin 13.1 g/dL (11.5-15.4); Immature Granulocytes % 0.5 % (0-4); Lymphocytes # 0.6 K/mcL (0.6-4.6); Lymphocytes % 3.4 %; Mean Corpuscular HGB Conc 32.7 g/dL (31.6-35.5); Mean Corpuscular Volume 104.2 fL (83.0-100.0); Mean Platelet Volume 9.4 fL (9.4-12.4); Monocytes % 13.6 %; Neutrophils # 14.8 K/mcL (1.6-8.9); Platelet Count 254 K/mcL (140-400); Red Blood Count 3.85 M/mcL (3.82-4.97); Red Cell Distribution Width 14.4 % (11.5-14.5); Segmented Neutrophils % 82.3 %
[2018-09-22 21:47] LABS: Monocytes # 2.5 K/mcL (0.0-1.3)
[2018-09-22 21:50] LABS: Prothrombin Time 11.9 Seconds (9.4-12.1)
[2018-09-22 21:53] LABS: Activated Partial Thrombo Time 34.6 Seconds (26.0-36.0)
[2018-09-22 22:01] LABS: Alanine Aminotransferase 18 Units/L (7-52); Albumin 4.2 g/dL (3.5-5.7); Albumin/Globulin Ratio 1.4 (1.1-2.2); Alkaline Phosphatase 40 Units/L (34-104); Aspartate Amino Transferase 27 Units/L (13-39); BUN/Creatinine Ratio 17 (6-26); Bilirubin,Direct 0.1 mg/dL (0.0-0.2); Bilirubin,Indirect 0.5 mg/dL (0.0-1.2); Bilirubin,Total 0.6 mg/dL (0.3-1.0); Blood Urea Nitrogen 18 mg/dL (8-23); Calcium 9.8 mg/dL (8.6-10.3); Carbon Dioxide 25 mEq/L (23-29); Chloride 101 mEq/L (98-107); Globulin 2.9 g/dL (2.4-3.5); Glucose 140 mg/dL (70-105); Osmolality,Calculated 284 (280-300); Potassium 4.4 mEq/L (3.5-5.1); Sodium 135 mEq/L (136-145); Total Protein 7.1 g/dL (6.4-8.9); Troponin I 0.03 ng/mL (< 0.04); eGFR For African Americans > 60 (> 60); eGFR For Non-African Americans 51 (> 60)
[2018-09-22] MEDS ORDERED: Isovue-370 500 ML BOTTLE IVP ONE (22:23)
[2018-09-22] MEDS ORDERED: levoFLOXacin 750 MG/150 ML 750 MG/150 ML BAG IVPB ONE (22:26)
--- NOTE | 2018-09-22 22:49 | Emergency Department Note ---
Disposition Clinical Impression: Acute exacerbation of chronic obstructive airways disease Pneumonia Qualifiers: Pneumonia type: due to unspecified organism Laterality: bilateral Lung location: lower lobe of lung Qualified Code(s): J18.1 - Lobar pneumonia, unspecified organism Disposition: Admitted As Inpatient Referrals: Imer Marin MD [Primary Care Provider] - Forms: ED Satisfaction Letter Time of Disposition: 01:30 SOB HPI - General Chief Complaint: ED Shortness of Breath/Dyspnea Stated Complaint: Asthma attack Time Seen by Provider: 09/22/18 21:16 Source: patient, family Limitations: no limitations Nursing Notes Reviewed: Yes Vital Signs Reviewed: Yes - History of Present Illness Presents to the emergency department with severe shortness of breath. Cough. Indicates that she sees Dr. Marin and he treated her one month ago for pneumonia. She reports she was on prednisone for a course and then off for a few days and now is back on prednisone. She states that she was treated with nebulizers but when she self pulmonary doctor they felt as though her illness was not pneumonia but rather asthma. She states that at 5 PM this evening her symptoms somewhat suddenly worsened. She has had a cough productive of a milky white and clear sputum. She reports no fever. She denies any chest pain, palpitations, but reports dyspnea on exertion is severe and she has exercise intolerance. She denies any chilling and no diaphoresis. Denies abdominal pain She denies any history of asthma in the past and is a nonsmoker Pt Subjective Complaint: shortness of breath, cough Onset (ago): hour(s) Context: recent illness Severity: severe Consistency/Duration: constant, gradually worsening Improves with: nothing Worsens with: exertion, coughing Known history of: COPD, asthma, recurrent pneumonia Associated symptoms: Reports: cough, wheezing, sputum production, sense of impending doom. Denies: chest pain, pain with inspiration, fever, orthopnea, lower extremity pain, polyuria, polydipsia, palpitations, abdominal pain, rash Treatment prior to arrival: bronchodilator (Took breathing treatment at home) Cough present: Yes Cough Description: Voluntary, Productive, Moist, Loose, Rattling Cough Frequency: Intermittent Sputum production: Yes Sputum Amount: Scant Sputum Color: White - Related Data Home oxygen amount: none Home Medications Medication Instructions Recorded Confirmed Alendronate Sodium 70 mg PO SA 11/30/14 05/05/17 Calcium Carbonate/Vitamin D3 1 each PO DAILY 10/24/15 03/29/18 [Calcium 600 + D Tablet] Hydroxychloroquine [Plaquenuil] 200 mg PO DAILY 11/30/14 05/05/17 Methotrexate [Otrexup] 7.5 mg PO SA 11/30/14 05/05/17 PredniSONE 5 mg PO DAILY 11/30/14 05/05/17 Ranitidine HCl [Zantac] 150 mg PO DAILY 11/30/14 05/05/17 Calcium/Vit B12/FA/Pyridoxine 1 each PO DAILY 06/06/15 05/05/17 [Folic Acid-Vit B6-Vit B12 Tab] Previous Rx's Medication Instructions Recorded Acetaminophen [Tylenol] 650 mg PO Q6HR PRN tablet 05/13/17 Albuterol Sulfate 2.5 mg IH Q4HR PRN #1 vial.neb 05/13/17 Albuterol Sulfate [Proair Hfa] 1 puff IH Q4-6H PRN #1 inh 05/13/17 Aspirin Enteric Coated [Aspirin EC] 325 mg PO BID #60 tablet. 05/13/17 Loratadine [Allergy Relief] 10 mg PO DAILY PRN #1 tablet 05/13/17 Losartan [Cozaar] 100 mg PO DAILY #30 tablet 05/13/17 OxyCODONE/APAP 5/325 [Percocet 1 - 2 each PO Q6HR PRN 7 Days #60 05/13/17 5/325 MG] tablet Allergies Allergy/AdvReac Type Severity Reaction Status Date / Time No Known Allergies Allergy Verified 04/19/17 11:38 All systems ED: reviewed and negative except as stated. 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 Skin color is pink. Appears well hydrated, body habitus elderly and cachectic. She is acutely uncomfortable with dyspnea, tachypnea, appears acutely ill. She has difficulty speaking because of the degree of dyspnea. Head: Normocephalic and atraumatic. External ear exam normal Nose: Nose normal. Mouth/Throat: Uvula is midline, oropharynx is clear and moist and mucous membranes are normal. Eyes: Conjunctivae nl, extraocular motions and lids are normal. Pupils are equal, round, and reactive to light. Neck: Normal range of motion and phonation normal. Neck supple. No JVD Cardiovascular: Rapid heart rate, regular rhythm, normal heart sounds. Pulmonary/Chest: Arrives in Respiratory distress. Constant irritative coughing With increased Respiratory Effort normal and breath sounds diminished throughout and mild end-expiratory wheezing with Rales throughout Abdominal: Soft. Normal appearance and bowel sounds are normal. no tenderness, no masses, no guarding, no rebound Musculoskeletal: Good distal pulses. Soft compartments. Brisk cap refill. Extremities: left knee is erythematous and swollen. Tender to palpation. Limited range of motion due to pain. But the calf is not tender or swollen. No sign of DVT..Intact peripheral pulses. No Edema. Extremity skin color nl, no calf tenderness or palpable cords. Neurological: GCS 15 Patient is alert and oriented without evidence of obvious motor deficits Skin: Skin is warm, dry and intact. color is normal, cap refill is quick Psychiatric: Patient has anxious mood and affect. Patient speech is normal and behavior is normal. Thought content normal. - General General appearance: alert Course - Reevaluation(s) Reevaluation #1: Patient indicates she does not feel any less dyspneic. She appears more comfortable however. Pulse ox was 95%. Blood pressure 185/86. Heart rate was down to 1:15. The patient also reports she has achy pain in her left knee which she states is red and swollen and has been so for 2 days. She states that this happened from time to time with her rheumatoid arthritis and she believe she is having a flare Time: 22:33 Reevaluation #2: Patient is having coughing spasms which she reports is causing her to be quite short of breath. Last do not was about 30 minutes ago I have elected to treat her with nebulized lidocaine temporarily. CTA pending. Antibiotics infusing Time: 23:33 Reevaluation #3: ct w/out PE, or disseminated infiltrates. Patient has improved significantly still dyspneic and would benefit from hospitalization. I discussed the case with Dr. Miller occupational health nurse manager for Dr. Marin who agrees with hospitalization. We discussed orders in detail including Lovenox, Levaquin, DuoNeb, Solu-Medrol doses, CBC and BMP, patient is agreeable to plan Time: 01:20 Vital Signs Temperature 98.6 F 09/22/18 21:07 Pulse Rate 119 09/22/18 21:07 Respiratory Rate 36 09/22/18 21:07 Blood Pressure 182/98 09/22/18 21:07 O2 Sat by Pulse Oximetry 93 09/22/18 21:07 Temperature 98.6 F 09/22/18 21:07 Pulse Rate 109 09/22/18 23:39 Respiratory Rate 18 09/23/18 00:31 Blood Pressure 171/98 09/22/18 23:39 O2 Sat by Pulse Oximetry 94 09/23/18 00:31 Oxygen Delivery Oxygen Delivery Nasal Cannula Shortness of Breath/Dyspnea - Differential Diagnosis Likely: acute exacerbation of chronic obstructive airways disease, congestive heart failure, pneumonia, pulmonary embolism - Medical Records Medical records reviewed: Yes I reviewed the patient's medical records. Reviewed previous chest x-ray which appears significantly clear compared to today's film - Lab Data Lab results reviewed: Yes I reviewed the patient's lab results. Result diagrams: 09/22/18 21:35 09/22/18 21:35 Lab Results 09/22/18 09/22/18 09/22/18 Range/Units 21:35 21:35 21:35 WBC 18.0 H (4.3-11.1) K/mcL RBC 3.85 (3.82-4.97) M/mcL Hgb 13.1 (11.5-15.4) g/dL Hct 40.1 (35.3-44.9) % MCV 104.2 H (83.0-100.0) fL MCH 34.0 H (28.0-33.3) pg MCHC 32.7 (31.6-35.5) g/dL RDW 14.4 (11.5-14.5) % Plt Count 254 (140-400) K/mcL MPV 9.4 (9.4-12.4) fL Immature Gran % 0.5 (0-4) % Seg Neutrophils % 82.3 % Lymphocytes % 3.4 % Monocytes % 13.6 % Eosinophils % 0.1 % Basophils % 0.1 % Neutrophils # 14.8 H (1.6-8.9) K/mcL Lymphocytes # 0.6 (0.6-4.6) K/mcL Monocytes # 2.5 H (0.0-1.3) K/mcL Eosinophils # 0.0 (0.0-0.6) K/mcL Basophils # 0.0 (0.0-0.2) K/mcL PT 11.9 (9.4-12.1) Seconds INR 1.0 APTT 34.6 (26.0-36.0) Seconds D-Dimer 772 H (0-500) ng/mLFEU VBG pH (7.32-7.42) pH Units VBG pCO2 (41-51) mmHg VBG pO2 (25-50) mmHg VBG HCO3 (21-27) mEq/L Sodium 135 L (136-145) mEq/L Potassium 4.4 (3.5-5.1) mEq/L Chloride 101 (98-107) mEq/L Carbon Dioxide 25 (23-29) mEq/L BUN 18 (8-23) mg/dL Creatinine 1.03 (0.60-1.20) mg/dL Est GFR ( Amer) > 60 (> 60) Est GFR (Non-Af Amer) 51 L (> 60) BUN/Creatinine Ratio 17 (6-26) Glucose 140 H (70-105) mg/dL Calculated Osmolality 284 (280-300) Lactic Acid (0.5-2.2) mmol/L Calcium 9.8 (8.6-10.3) mg/dL Total Bilirubin 0.6 (0.3-1.0) mg/dL Direct Bilirubin 0.1 (0.0-0.2) mg/dL Indirect Bilirubin 0.5 (0.0-1.2) mg/dL AST 27 (13-39) Units/L ALT 18 (7-52) Units/L Alkaline Phosphatase 40 (34-104) Units/L Troponin I 0.03 (< 0.04) ng/mL B-Natriuretic Peptide (Less than 100) pg/mL Serum Total Protein 7.1 (6.4-8.9) g/dL Albumin 4.2 (3.5-5.7) g/dL Globulin 2.9 (2.4-3.5) g/dL Albumin/Globulin Ratio 1.4 (1.1-2.2) Urine Color (Yellow) Urine Clarity (Clear) Urine pH (5.0-8.0) pH Units Ur Specific [place] (1.010-1.025) Urine Protein (Neg-Trace) mg/dL Urine Glucose (UA) (Normal) mg/dL Urine Ketones (Negative) mg/dL Urine Blood (Negative) Urine Nitrite (Negative) Urine Bilirubin (Negative) Urine Urobilinogen (Normal) mg/dL Ur Leukocyte Esterase (Negative) Urine Microscopic RBC (0-3) per hpf Urine Microscopic WBC (0-3) per hpf Ur Squamous Epith Cells (None-Few) per lpf Urine Bacteria (None-Few) per hpf Hyaline Casts (None-Few) per lpf Ur Culture Indicated? (NO) 09/22/18 09/22/18 09/22/18 Range/Units 21:35 21:35 23:00 WBC (4.3-11.1) K/mcL RBC (3.82-4.97) M/mcL Hgb (11.5-15.4) g/dL Hct (35.3-44.9) % MCV (83.0-100.0) fL MCH (28.0-33.3) pg MCHC (31.6-35.5) g/dL RDW (11.5-14.5) % Plt Count (140-400) K/mcL MPV (9.4-12.4) fL Immature Gran % (0-4) % Seg Neutrophils % % Lymphocytes % % Monocytes % % Eosinophils % % Basophils % % Neutrophils # (1.6-8.9) K/mcL Lymphocytes # (0.6-4.6) K/mcL Monocytes # (0.0-1.3) K/mcL Eosinophils # (0.0-0.6) K/mcL Basophils # (0.0-0.2) K/mcL PT (9.4-12.1) Seconds INR APTT (26.0-36.0) Seconds D-Dimer (0-500) ng/mLFEU VBG pH (7.32-7.42) pH Units VBG pCO2 (41-51) mmHg VBG pO2 (25-50) mmHg VBG HCO3 (21-27) mEq/L Sodium (136-145) mEq/L Potassium (3.5-5.1) mEq/L Chloride (98-107) mEq/L Carbon Dioxide (23-29) mEq/L BUN (8-23) mg/dL Creatinine (0.60-1.20) mg/dL Est GFR ( Amer) (> 60) Est GFR (Non-Af Amer) (> 60) BUN/Creatinine Ratio (6-26) Glucose (70-105) mg/dL Calculated Osmolality (280-300) Lactic Acid 2.1 (0.5-2.2) mmol/L Calcium (8.6-10.3) mg/dL Total Bilirubin (0.3-1.0) mg/dL Direct Bilirubin (0.0-0.2) mg/dL Indirect Bilirubin (0.0-1.2) mg/dL AST (13-39) Units/L ALT (7-52) Units/L Alkaline Phosphatase (34-104) Units/L Troponin I (< 0.04) ng/mL B-Natriuretic Peptide 194 H (Less than 100) pg/mL Serum Total Protein (6.4-8.9) g/dL Albumin (3.5-5.7) g/dL Globulin (2.4-3.5) g/dL Albumin/Globulin Ratio (1.1-2.2) Urine Color Yellow (Yellow) Urine Clarity Clear (Clear) Urine pH 6.5 (5.0-8.0) pH Units Ur Specific [place] >= 1.030 H (1.010-1.025) Urine Protein 30 H (Neg-Trace) mg/dL Urine Glucose (UA) Normal (Normal) mg/dL Urine Ketones Negative (Negative) mg/dL Urine Blood Negative (Negative) Urine Nitrite Negative (Negative) Urine Bilirubin Negative (Negative) Urine Urobilinogen Normal (Normal) mg/dL Ur Leukocyte Esterase Trace H (Negative) Urine Microscopic RBC 0-3 (0-3) per hpf Urine Microscopic WBC 0-3 (0-3) per hpf Ur Squamous Epith Cells Few (None-Few) per lpf Urine Bacteria Few (None-Few) per hpf Hyaline Casts Few (None-Few) per lpf Ur Culture Indicated? YES A (NO) 09/22/18 Range/Units 23:07 WBC (4.3-11.1) K/mcL RBC (3.82-4.97) M/mcL Hgb (11.5-15.4) g/dL Hct (35.3-44.9) % MCV (83.0-100.0) fL MCH (28.0-33.3) pg MCHC (31.6-35.5) g/dL RDW (11.5-14.5) % Plt Count (140-400) K/mcL MPV (9.4-12.4) fL Immature Gran % (0-4) % Seg Neutrophils % % Lymphocytes % % Monocytes % % Eosinophils % % Basophils % % Neutrophils # (1.6-8.9) K/mcL Lymphocytes # (0.6-4.6) K/mcL Monocytes # (0.0-1.3) K/mcL Eosinophils # (0.0-0.6) K/mcL Basophils # (0.0-0.2) K/mcL PT (9.4-12.1) Seconds INR APTT (26.0-36.0) Seconds D-Dimer (0-500) ng/mLFEU VBG pH 7.40 (7.32-7.42) pH Units VBG pCO2 38 L (41-51) mmHg VBG pO2 46 (25-50) mmHg VBG HCO3 23 (21-27) mEq/L Sodium (136-145) mEq/L Potassium (3.5-5.1) mEq/L Chloride (98-107) mEq/L Carbon Dioxide (23-29) mEq/L BUN (8-23) mg/dL Creatinine (0.60-1.20) mg/dL Est GFR ( Amer) (> 60) Est GFR (Non-Af Amer) (> 60) BUN/Creatinine Ratio (6-26) Glucose (70-105) mg/dL Calculated Osmolality (280-300) Lactic Acid (0.5-2.2) mmol/L Calcium (8.6-10.3) mg/dL Total Bilirubin (0.3-1.0) mg/dL Direct Bilirubin (0.0-0.2) mg/dL Indirect Bilirubin (0.0-1.2) mg/dL AST (13-39) Units/L ALT (7-52) Units/L Alkaline Phosphatase (34-104) Units/L Troponin I (< 0.04) ng/mL B-Natriuretic Peptide (Less than 100) pg/mL Serum Total Protein (6.4-8.9) g/dL Albumin (3.5-5.7) g/dL Globulin (2.4-3.5) g/dL Albumin/Globulin Ratio (1.1-2.2) Urine Color (Yellow) Urine Clarity (Clear) Urine pH (5.0-8.0) pH Units Ur Specific [place] (1.010-1.025) Urine Protein (Neg-Trace) mg/dL Urine Glucose (UA) (Normal) mg/dL Urine Ketones (Negative) mg/dL Urine Blood (Negative) Urine Nitrite (Negative) Urine Bilirubin (Negative) Urine Urobilinogen (Normal) mg/dL Ur Leukocyte Esterase (Negative) Urine Microscopic RBC (0-3) per hpf Urine Microscopic WBC (0-3) per hpf Ur Squamous Epith Cells (None-Few) per lpf Urine Bacteria (None-Few) per hpf Hyaline Casts (None-Few) per lpf Ur Culture Indicated? (NO) - Radiology Data Radiology results reviewed: Yes I reviewed the patient's radiology results. Portable chest x-ray per radiology reveals acute right and left. Hilar and left basilar airspace opacity most consistent with multifocal pneumonia. Stable chronic interstitial pulmonary fibrosis. - EKG Data EKG attestation: Yes I reviewed and interpreted this EKG. EKG results narrative: ECG shows sinus tachycardia with a rate of 128. Right atrial enlargement. No ST elevation or depression. No signs of ischemia. Critical Care Time Critical Care Time: Yes Attestation: Critical care provided for this patient of which 45 minutes were spent on critical care including at patient bedside, record review, evaluation of results, conversation with consultants and decision making and 0 minutes for procedures There was imminent failure of an organ system which required critical intervention to prevent clinically significant progression of life-threatening deterioration of the patient's condition to the point of disability or
[2018-09-22 23:06] LABS: Bilirubin,Urine Negative (Negative); Blood,Urine Negative (Negative); Clarity,Urine Clear (Clear); Color,Urine Yellow (Yellow); Glucose,Urine (UA) Normal (Normal); Ketones,Urine Negative (Negative); Leukocyte Esterase,Urine Trace (Negative); Nitrite,Urine Negative (Negative); PH,Urine 6.5 pH Units (5.0-8.0); Protein,Urine 30 mg/dL (Neg-Trace); Specific Gravity,Urine >= 1.030 (1.010-1.025); Urobilinogen,Urine Normal (Normal)
[2018-09-22 23:10] LABS: VBG HCO3 23 mEq/L (21-27); VBG PCO2 38 mmHg (41-51); VBG PO2 46 mmHg (25-50)
[2018-09-22 23:13] LABS: Bacteria,Urine Few per hpf (None-Few); Hyaline Casts,Urine Few per lpf (None-Few); RBC,Urine 0-3 per hpf (0-3); Squamous Epithelial Cell,Urine Few per lpf (None-Few); WBC,Urine 0-3 per hpf (0-3)
[2018-09-22] MEDS ORDERED: Oxymetazoline Nasal SPRAY BOTTLE NS ONE (23:57)
[2018-09-23] MEDS ORDERED: Lidocaine -MPF 2% 5 ML VIAL ONE (00:22)
[2018-09-23] MEDS ORDERED: Naloxone 0.4 MG/ML INJ IVP PRN (04:38)
[2018-09-23] MEDS ORDERED: Ipratropium/Albuterol Neb 3 ML ONE (04:38)
[2018-09-23] MEDS ORDERED: Ondansetron ODT 4 MG TAB.RAPDIS SL PRN (04:38)
[2018-09-23] MEDS ORDERED: levoFLOXacin 750 MG/150 ML 750 MG/150 ML BAG IVPB ONE (04:38)
[2018-09-23] MEDS ORDERED: NON-FORMULARY MEDICATION 1 EACH EACH (Alendronate Sodium 70 MG) PO SCH (04:38)
[2018-09-23] MEDS ORDERED: Oxymetazoline Nasal SPRAY BOTTLE NS ONE (05:45)
[2018-09-23] MEDS ORDERED: Acetaminophen 325 MG TABLET PO PRN (05:45)
[2018-09-23] MEDS ORDERED: *HR* Methotrexate 2.5 MG TABLET PO SCH (06:00)
[2018-09-23 06:07] LABS: Basophils % 0.1 %; Immature Granulocytes % 0.8 % (0-4); Lymphocytes # 0.3 K/mcL (0.6-4.6); Lymphocytes % 1.4 %; Mean Corpuscular HGB Conc 33.3 g/dL (31.6-35.5); Mean Corpuscular Volume 102.1 fL (83.0-100.0); Mean Platelet Volume 9.6 fL (9.4-12.4); Monocytes # 0.9 K/mcL (0.0-1.3); Monocytes % 4.4 %; Neutrophils # 19.1 K/mcL (1.6-8.9); Platelet Count 275 K/mcL (140-400); Red Blood Count 3.82 M/mcL (3.82-4.97); Red Cell Distribution Width 14.4 % (11.5-14.5); Segmented Neutrophils % 93.3 %; White Blood Count 20.5 K/mcL (4.3-11.1)
[2018-09-23 06:11] LABS: INR 1.1; Prothrombin Time 12.4 Seconds (9.4-12.1)
[2018-09-23 06:20] LABS: BUN/Creatinine Ratio 18 (6-26); Blood Urea Nitrogen 16 mg/dL (8-23); Calcium 9.3 mg/dL (8.6-10.3); Carbon Dioxide 23 mEq/L (23-29); Chloride 99 mEq/L (98-107); Glucose 167 mg/dL (70-105); Osmolality,Calculated 279 (280-300); Potassium 4.2 mEq/L (3.5-5.1); Sodium 132 mEq/L (136-145); eGFR For African Americans > 60 (> 60); eGFR For Non-African Americans 59 (> 60)
[2018-09-23] MEDS: 0.9 % Sodium Chloride 500 ML IVC SCH ×2 (06:34→19:39)
[2018-09-23] MEDS: *HR* Enoxaparin 30 MG/0.3 ML SYRINGE SQ SCH (06:35)
[2018-09-23] MEDS: methylPREDNISolone 125 MG/2 ML VIAL IVP SCH ×3 (06:35→22:25)
[2018-09-23] MEDS ORDERED: 0.9 % Sodium Chloride 500 ML IVC ONE (07:30)
[2018-09-23] MEDS: Vitamin B Complex/Vit C/Vit E 1 EACH TABLET PO SCH (09:02)
[2018-09-23] MEDS: Aspirin Enteric Coated 325 MG Tablet PO SCH ×2 (09:02→22:26)
[2018-09-23] MEDS: Famotidine 20 MG TABLET PO SCH (09:02)
--- NOTE | 2018-09-23 10:36 | Internal Med History&Physical ---
Date of Encounter: 09/23/18 Time of Encounter: 10:34 Assessment and Plan (1) Acute exacerbation of chronic obstructive airways disease Current visit: Yes Status: Acute She has as history of interstitial lung disease she has seen pulmonology for this she has had her MDIs adjusted she was scheduled for PFTs but has not been done yet she had an echo that did not show any significant disease. Pulmonary felt this might be related to possibly methotrexate or possibly related to her rheumatoid arthritis. She came in short of breath she was given nebulizer treatments Solu-Medrol Levaquin blood cultures are pending. She was weaned to room air. (2) Renal mass, right Current visit: Yes Status: Acute Discussed her CT result that she has a mass on the kidney discussed sending her as an outpatient to see urology her son is in the room he just saw Dr. Daugherty here we will make a referral as an outpatient. (3) Rheumatoid arthritis Current visit: No Status: Chronic She is on methotrexate and plaque when out. There was some question about the methotrexate causing some pulmonary fibrosis. We will continue that for now she is on IV Solu-Medrol. Qualifiers: Rheumatoid arthritis location: unspecified site Rheumatoid factor presence: unspecified presence Qualified Code(s): M06.9 - Rheumatoid arthritis, unspecified (4) DVT prophylaxis Current visit: No Status: Resolved Lovenox (5) Essential hypertension Current visit: No Status: Chronic Will continue her home medication (6) Osteoporosis Current visit: No Status: Chronic Will continue her home medication she is on Fosamax and calcium with vitamin D Qualifiers: Osteoporosis type: unspecified Presence of current pathological fracture: unspecified Qualified Code(s): M81.0 - Age-related osteoporosis without current pathological fracture (7) GERD (gastroesophageal reflux disease) Current visit: No Status: Acute She is on Zantac at home. Continue H2 jeremiah Qualifiers: Esophagitis presence: esophagitis presence not specified Qualified Code(s): K21.9 - Gastro-esophageal reflux disease without esophagitis (8) Hyponatremia Current visit: No Status: Resolved She is getting IV fluids we will continue to follow that. (9) Interstitial lung disease Current visit: Yes Status: Acute She has seen pulmonology in the past she is being worked up for this. Do IV steroids and nebulizer treatment oxygen as needed (10) Elevated lactic acid level Current visit: Yes Status: Acute We will continue with IV fluid resuscitation continue to follow lactic acid levels. She has not been hypotensive or febrile. Blood cultures are pending she is currently on Levaquin Internal Medicine - H&P: HPI Chief complaint: Short of breath coughing Admitted From: Home History of present illness: Ms. Hawthorne is a 83 year old female Who has been having some respiratory difficulties for the past 2 months. She is seen pulmonology she has been on several doses of antibiotics and steroids she has had her inhalers changed. Last night she became so short of breath she was coughing she could not catch her breath she was afraid she was given a dye she came into the emergency room she was found to be hypoxic there she was put on oxygen she was given nebulizer she was given Solu-Medrol she had Levaquin. Her chest x-ray appeared to be a pneumonia but when they got a CT scan to rule out a PE for an elevated d-dimer there was not any evidence of a pneumonia but i nterstitial lung disease. She has been feeling better since she came in she is not coughing as much but she will cough if she was round she will cough if she talks a lot. She says she does feel a lot better she has been weaned to room air. Her lactic acid is been elevated and his continued decline until this last one where it was down 0.2. She is getting IV fluid resuscitation she does have blood cultures and urine cultures pending. She has not been running any fever she has been dizzy she has been short of breath she has not had any falls or syncope she has not had any chest pain or palpitations. She does have incontinence a urine especially whenever she coughs she has been wheezing and short of breath she has occasional clear sputum to milky colored sputum but no hemoptysis she has not traveled she does not have any ill contacts Past Med Surg Social Fam HX - Past Medical History Medical history: arthritis, COPD, GERD, hypertension, osteoporosis, RA, other (interstitial lung disease) Additional medical history: whissler, Psychiatric history: no psych history - Past Surgical History Surgical History: hysterectomy (1967), orthopedic, other (wrist 1991, thumb fusion replacement 2014, left hip 04/29/17, left total shoulder reverse 313 2017) Additional surgical history: Left shoulder. left hip replacement - Social History Smoking Status: Never smoker Smokeless Tobacco Status: No Alcohol use: none Drug use: none - Family History Mother Living Status: Hx Family Cardiac Disorders: Yes (Hypertension) Hx Family Endocrine Disorder: Yes (dm2) Father Living Status: Age at : 100 Hx Family Cardiac Disorders: Yes (cad) Internal Medicine - H&P: Meds Alendronate Sodium 70 mg PO SA 11/30/14 [History] Calcium Carbonate/Vitamin D3 [Calcium 600 + D Tablet] 1 each PO DAILY 11/30/14 [History] Hydroxychloroquine [Plaquenuil] 200 mg PO DAILY 11/30/14 [History] Methotrexate [Otrexup] 2.5 mg PO SA 11/30/14 [History] PredniSONE 5 mg PO DAILY 11/30/14 [History] Ranitidine HCl [Zantac] 150 mg PO DAILY 11/30/14 [History] Calcium/Vit B12/FA/Pyridoxine [Folic Acid-Vit B6-Vit B12 Tab] 1 each PO DAILY 06/06/15 [History] Acetaminophen [Tylenol] 650 mg PO Q6HR PRN tablet 05/13/17 [Rx] Albuterol Sulfate 2.5 mg IH Q4HR PRN #1 vial.neb 05/13/17 [Rx] Albuterol Sulfate [Proair Hfa] 1 puff IH Q4-6H PRN #1 inh 05/13/17 [Rx] Aspirin Enteric Coated [Aspirin EC] 325 mg PO BID #60 tablet. 05/13/17 [Rx] Loratadine [Allergy Relief] 10 mg PO DAILY PRN #1 tablet 05/13/17 [Rx] OxyCODONE/APAP 5/325 [Percocet 5/325 MG] 1 - 2 each PO Q6HR PRN 7 Days #60 t ablet 05/13/17 [Rx] Losartan [Cozaar] 25 mg PO DAILY 09/23/18 [History] Multivit-Min/Iron/Folic Acid/K [Adults Multivitamin Tablet] 1 each PO DAILY 09/23/18 [History] Allergy/AdvReac Type Severity Reaction Status Date / Time No Known Allergies Allergy Verified 09/23/18 04:09 All Systems PM: A 10-system review of systems was performed and is negative for pertinent findings except as documented above in the HPI. - Constitutional Constitutional: fatigue, no chills, no fever(s), no falls, no weakness - EENT Eyes: no change in vision Nose, mouth and throat: no epistaxis - Cardiovascular Cardiovascular ROS IM: dyspnea, no chest pain, no edema, no lightheadedness, no palpitations, no syncope - Respiratory Respiratory: cough, dyspnea on exertion, wheezing, no hemoptysis - Gastrointestinal Gastrointestinal: constipation (She denies need for any medication for constipation), heartburn, nausea, no abdominal pain, no diarrhea, no hematochezia, no melena, no vomiting - Genitourinary Genitourinary: urinary frequency, urinary incontinence, no dysuria, no hematuria - Musculoskeletal Musculoskeletal ROS IM: arthralgias, deformity, limited range of motion - Hematologic/Lymphatic Hematologic/Lymphatic: easy bleeding - Constitutional Vitals: Temp Pulse Resp BP Pulse Ox 98.0 F 95 16 145/74 96 09/23/18 08:15 09/23/18 08:15 09/23/18 08:15 09/23/18 08:15 09/23/18 08:15 General appearance: Present: A&O X 3, pleasant, answers questions appropriately. Absent: no acute distress - Head Head exam: Present: atraumatic, normocephalic - Neck Neck exam general surgery: Present: trachea midline. Absent: lymphadenopathy - Expanded Neck Exam Neck exam: Absent: carotid bruit - Respiratory Respiratory exam: Present: decreased breath sounds, prolonged expiratory phase, rhonchi (Throughout). Absent: accessory muscle use - Cardiovascular Cardiovascular exam: Present: +S1, +S2. Absent: RRR, systolic murmur - GI/Abdominal GI/Abdominal exam: Present: normal bowel sounds, no peritoneal signs. Absent: distended, guarding, hepatomegaly, mass, tenderness - Extremities Exam Extremities exam: Present: normal capillary refill, warm. Absent: pedal edema - Expanded Upper Extremities Exam Hand wrist exam: Present: deformity - Skin Skin exam: Present: dry, warm. Absent: rash Internal Med - H&P Results - Labs CBC & Chem 7: 09/23/18 05:40 09/23/18 05:40 Labs: Short CBC 09/22/18 09/23/18 Range/Units 21:35 05:40 WBC 18.0 H 20.5 H (4.3-11.1) K/mcL Hgb 13.1 13.0 (11.5-15.4) g/dL Hct 40.1 39.0 (35.3-44.9) % Plt Count 254 275 (140-400) K/mcL Neutrophils # 14.8 H 19.1 H (1.6-8.9) K/mcL BMP 09/22/18 09/23/18 21:35 05:40 Sodium 135 L 132 L Potassium 4.4 4.2 Chloride 101 99 Carbon Dioxide 25 23 BUN 18 16 Creatinine 1.03 0.91 Glucose 140 H 167 H Calcium 9.8 9.3 Cardiac Enzymes 09/22/18 Range/Units 21:35 Troponin I 0.03 (< 0.04) ng/mL Liver Function 09/22/18 Range/Units 21:35 Total Bilirubin 0.6 (0.3-1.0) mg/dL Direct Bilirubin 0.1 (0.0-0.2) mg/dL AST 27 (13-39) Units/L ALT 18 (7-52) Units/L Alkaline Phosphatase 40 (34-104) Units/L Albumin 4.2 (3.5-5.7) g/dL Urine 09/22/18 Range/Units 23:00 Urine Color Yellow (Yellow) Urine Clarity Clear (Clear) Urine pH 6.5 (5.0-8.0) pH Units Ur Specific [place] >= 1.030 H (1.010-1.025) Urine Protein 30 H (Neg-Trace) mg/dL Urine Glucose (UA) Normal (Normal) mg/dL - ABG Interpretation ABG results: 09/22/18 23:07 VBG pH 7.40 VBG pCO2 38 L VBG pO2 46 VBG HCO3 23 - Impressions ITS Impressions Chest X-Ray 09/22/18 21:16 IMPRESSION: 1. Acute right perihilar and left basilar airspace opacity, most consistent with multifocal pneumonia. 2. Stable chronic interstitial pulmonary fibrosis. D/ / 09/22/2018 21:55:53 Paul Hendricks MD / abby Interpreting Provider: Paul Hendricks MD Chest CTA 09/22/18 22:23 IMPRESSION: Motion limited study. No evidence of central or lobar pulmonary embolism. Evaluation beyond this level is nondiagnostic. Relatively stable mild fibrotic changes in the lower lungs peripherally. Moderate size hiatal hernia. 1.7 cm lesion arising from the superior pole the left kidney with attenuation of 73 Hounsfield units. Although this could represent a hyperdense cyst, solid lesion such as renal cell carcinoma cannot be excluded. D/ / Maury Penn / Maury Penn Interpreting Provider: Maury Penn
[2018-09-23] MEDS ORDERED: 0.9 % Sodium Chloride 1,000 ML IVC SCH (13:00)
[2018-09-23] MEDS: 0.9 % Sodium Chloride 1,000 ML IVC SCH ×2 (16:07→23:52)
--- NOTE | 2018-09-23 16:28 | Electrocardiograph Report ---
[address] [address] Test Date: 2018-09-22 Pat Name: Coleen Hawthorne Department: [id number] Room: 117 Gender: F [employer]: : [id number] Requested By: Goldie Talbot Order Number: [id number] Reading MD: Moraima Day Measurements Intervals [place] Rate: 128 P: 58 WV: 148 QRS: -16 QRSD: 83 T: 16 QT: 311 QTc: 454 Interpretive Statements Sinus tachycardia Atrial premature complex Consider right atrial enlargement Left ventricular hypertrophy Electronically Signed On 09-23-2018 16:26:33 EDT by Moraima Day
[2018-09-24] MEDS: Ipratropium/Albuterol Neb 3 ML IH PRN ×2 (00:39→21:58)
[2018-09-24] MEDS ORDERED: 0.9 % Sodium Chloride 1,000 ML IVC SCH (04:30)
[2018-09-24] MEDS: methylPREDNISolone 125 MG/2 ML VIAL IVP SCH ×3 (05:07→21:58)
[2018-09-24] MEDS: *HR* Enoxaparin 30 MG/0.3 ML SYRINGE SQ SCH (05:07)
[2018-09-24 05:16] LABS: Basophils % 0.1 %; Hematocrit 33.6 % (35.3-44.9); Hemoglobin 11.1 g/dL (11.5-15.4); Immature Granulocytes % 1.1 % (0-4); Lymphocytes # 0.4 K/mcL (0.6-4.6); Mean Corpuscular Volume 103.1 fL (83.0-100.0); Mean Platelet Volume 9.6 fL (9.4-12.4); Monocytes # 0.9 K/mcL (0.0-1.3); Monocytes % 4.9 %; Neutrophils # 17.2 K/mcL (1.6-8.9); Platelet Count 250 K/mcL (140-400); Red Blood Count 3.26 M/mcL (3.82-4.97); Red Cell Distribution Width 14.4 % (11.5-14.5); Segmented Neutrophils % 91.9 %; White Blood Count 18.7 K/mcL (4.3-11.1)
[2018-09-24 05:21] LABS: INR 1.1; Prothrombin Time 12.1 Seconds (9.4-12.1)
[2018-09-24 05:35] LABS: BUN/Creatinine Ratio 22 (6-26); Blood Urea Nitrogen 16 mg/dL (8-23); Calcium 7.9 mg/dL (8.6-10.3); Carbon Dioxide 21 mEq/L (23-29); Chloride 110 mEq/L (98-107); Glucose 137 mg/dL (70-105); Osmolality,Calculated 293 (280-300); Potassium 3.6 mEq/L (3.5-5.1); Sodium 140 mEq/L (136-145); eGFR For African Americans > 60 (> 60); eGFR For Non-African Americans > 60 (> 60)
[2018-09-24] MEDS: Famotidine 20 MG TABLET PO SCH (09:00)
[2018-09-24] MEDS: Aspirin Enteric Coated 325 MG Tablet PO SCH ×2 (09:00→20:30)
[2018-09-24] MEDS: Vitamin B Complex/Vit C/Vit E 1 EACH TABLET PO SCH (09:00)
--- NOTE | 2018-09-24 10:27 | Internal Med Progress Note ---
Date of Encounter: 09/24/18 Time of Encounter: 10:25 - Assessment and plan (1) Acute exacerbation of chronic obstructive airways disease Current Visit: Yes Status: Acute Assessment and plan: Continue the duo nebs the Levaquin the Solu-Medrol. She is on room air blood cultures are pending (2) Renal mass, right Current Visit: Yes Status: Acute Assessment and plan: Will work this up as an outpatient with the urologist (3) Rheumatoid arthritis Current Visit: No Status: Chronic Assessment and plan: Continue her home dose of Plaquenil and methotrexate she is also getting IV steroids. Qualifiers: Rheumatoid arthritis location: unspecified site Rheumatoid factor presence: unspecified presence Qualified Code(s): M06.9 - Rheumatoid arthritis, unspecified (4) DVT prophylaxis Current Visit: No Status: Resolved Assessment and plan: Lovenox (5) Essential hypertension Current Visit: No Status: Chronic Assessment and plan: It is starting to run high. We will go ahead and saline well her IV I hesitate mother medicine and she was low when she came in. We will continue to watch this if it does not get better she is not really candidate for beta blockers with her lung disease. Take go up on the Cozaar. Do not want to give her diuretics she was hyponatremic and dehydrated when she came in. If blood pressure stays elevated we will likely add amlodipine (6) Osteoporosis Current Visit: No Status: Chronic Qualifiers: Osteoporosis type: unspecified Presence of current pathological fracture: unspecified Qualified Code(s): M81.0 - Age-related osteoporosis without current pathological fracture (7) GERD (gastroesophageal reflux disease) Current Visit: No Status: Acute Assessment and plan: Continue the H2 jeremiah Qualifiers: Esophagitis presence: esophagitis presence not specified Qualified Code(s): K21.9 - Gastro-esophageal reflux disease without esophagitis (8) Hyponatremia Current Visit: No Status: Resolved Assessment and plan: Due to dehydration this is return to normal with IV fluids (9) Interstitial lung disease Current Visit: Yes Status: Acute Assessment and plan: She is being seen by pulmonology as an outpatient had her MDIs adjusted she is currently getting IV Solu-Medrol duo nebs. (10) Elevated lactic acid level Current Visit: Yes Status: Acute Assessment and plan: With IV resuscitation she has returned to normal. We will go ahead and saline well this (11) Leukocytosis Current Visit: Yes Status: Acute Assessment and plan: Her white count has remained elevated. She is getting steroids. But she does have an increased neutrophil count. Blood cultures urine cultures are pending she is on Levaquin she is afebrile Qualifiers: Leukocytosis type: unspecified Qualified Code(s): D72.829 - Elevated white blood cell count, unspecified (12) Full code status Current Visit: Yes Status: Acute Assessment and plan: Discussed CODE STATUS the patient she does want to be full code. - Subjective Interval history: She does feel better today she is not dizzy she does not feel any palpitations. She still has a cough her shortness of breath is better. She has had some constipation but did have a small stool this morning she does not have any diarrhea should not have any nausea or vomiting. - Constitutional Vitals: Temp Pulse Resp BP Pulse Ox 98.3 F 90 18 186/79 96 09/24/18 09:00 09/24/18 09:00 09/24/18 09:00 09/24/18 09:00 09/24/18 09:00 General appearance: Present: A&O X 3, pleasant, answers questions appropriately. Absent: no acute distress - Head Head exam: Present: atraumatic, normocephalic - Neck Neck exam general surgery: Present: supple, trachea midline - Respiratory Respiratory exam: Present: CTAB - Cardiovascular Cardiovascular exam: Present: RRR, +S1, +S2. Absent: systolic murmur - GI/Abdominal GI/Abdominal exam: Present: normal bowel sounds, soft, no peritoneal signs. Absent: distended, guarding, tenderness - Extremities Exam Extremities exam: Present: normal capillary refill, pedal edema, warm. Absent: mottling - Skin Skin exam: Present: dry, warm Internal Medicine: Result - Labs CBC & Chem 7: 09/24/18 05:02 09/24/18 05:02 Labs: Short CBC 09/24/18 Range/Units 05:02 WBC 18.7 H (4.3-11.1) K/mcL Hgb 11.1 L D (11.5-15.4) g/dL Hct 33.6 L (35.3-44.9) % Plt Count 250 (140-400) K/mcL Neutrophils # 17.2 H (1.6-8.9) K/mcL BMP 09/24/18 05:02 Sodium 140 Potassium 3.6 Chloride 110 H Carbon Dioxide 21 L BUN 16 Creatinine 0.73 Glucose 137 H Calcium 7.9 L - ABG Interpretation ABG results: PT/INR, D-dimer PT 12.1 Seconds (9.4-12.1) 09/24/18 05:02 D-Dimer 772 ng/mLFEU (0-500) H 09/22/18 21:35 - Impressions Impressions Chest X-Ray 09/22/18 21:16 IMPRESSION: 1. Acute right perihilar and left basilar airspace opacity, most consistent with multifocal pneumonia. 2. Stable chronic interstitial pulmonary fibrosis. D/ / 09/22/2018 21:55:53 Paul Hendricks MD / abby Interpreting Provider: Paul Hendricks MD Consult Discharge Plan - Plan Referrals: Imer Marin MD [Primary Care Provider] -
--- NOTE | 2018-09-24 13:45 | Event Note ---
Date of Encounter: 09/24/18 Time of Encounter: 13:44 Her blood pressures continue to run high she does not have any symptoms of this but the IV fluids been stopped cannot start beta jeremiah due to her breathing wheezing. Go ahead and add some amlodipine.
[2018-09-24] MEDS: amLODIPine 5 MG TABLET PO SCH (14:23)
[2018-09-24] MEDS: Benzonatate 100 MG CAPSULE PO PRN (20:30)
[2018-09-25] MEDS: Benzonatate 100 MG CAPSULE PO PRN ×2 (05:30→22:36)
[2018-09-25] MEDS: methylPREDNISolone 125 MG/2 ML VIAL IVP SCH ×2 (05:30→18:40)
[2018-09-25] MEDS: *HR* Enoxaparin 30 MG/0.3 ML SYRINGE SQ SCH (05:30)
[2018-09-25 06:15] LABS: Basophils % 0.1 %; Hematocrit 34.8 % (35.3-44.9); Hemoglobin 11.2 g/dL (11.5-15.4); Lymphocytes # 0.4 K/mcL (0.6-4.6); Lymphocytes % 2.8 %; Mean Corpuscular HGB Conc 32.2 g/dL (31.6-35.5); Mean Corpuscular Hemoglobin 33.4 pg (28.0-33.3); Mean Corpuscular Volume 103.9 fL (83.0-100.0); Mean Platelet Volume 9.4 fL (9.4-12.4); Monocytes # 0.9 K/mcL (0.0-1.3); Monocytes % 5.7 %; Neutrophils # 13.7 K/mcL (1.6-8.9); Platelet Count 290 K/mcL (140-400); Red Blood Count 3.35 M/mcL (3.82-4.97); Red Cell Distribution Width 14.3 % (11.5-14.5); Segmented Neutrophils % 90.4 %; White Blood Count 15.2 K/mcL (4.3-11.1)
[2018-09-25] MEDS: levoFLOXacin 500 MG/100 ML 500 MG/100 ML BAG IVPB SCH (06:15)
[2018-09-25 06:25] LABS: BUN/Creatinine Ratio 25 (6-26); Blood Urea Nitrogen 19 mg/dL (8-23); Calcium 8.6 mg/dL (8.6-10.3); Carbon Dioxide 25 mEq/L (23-29); Chloride 107 mEq/L (98-107); Glucose 137 mg/dL (70-105); Osmolality,Calculated 292 (280-300); Potassium 4.1 mEq/L (3.5-5.1); Sodium 139 mEq/L (136-145); eGFR For African Americans > 60 (> 60); eGFR For Non-African Americans > 60 (> 60)
--- NOTE | 2018-09-25 07:54 | Internal Med Progress Note ---
Date of Encounter: 09/25/18 Time of Encounter: 07:52 - Assessment and plan (1) Acute exacerbation of chronic obstructive airways disease Current Visit: Yes Status: Acute Assessment and plan: Patient has improved since arrive but still is experiencing productive cough with shortness of breath. Nebulizer treatment will be giving 4 times per day and prn. Continue with steroid treatment. (2) Interstitial lung disease Current Visit: Yes Status: Acute Assessment and plan: Patient is doing well when using the nebulizer treatment. Continue with nebulizer treatment 4x per day. (3) Leukocytosis Current Visit: Yes Status: Acute Assessment and plan: WBC continue to be elevated. Continue on levofloxacin. Qualifiers: Leukocytosis type: unspecified Qualified Code(s): D72.829 - Elevated white blood cell count, unspecified (4) Essential hypertension Current Visit: No Status: Chronic Assessment and plan: Patient BP continue to be elevated. Continue Amlopdine therapy begun earlier this morning. (5) DVT prophylaxis Current Visit: Yes Status: Resolved Assessment and plan: Patient is being anticoagulated with Enoxaparin. (6) Rheumatoid arthritis Current Visit: No Status: Chronic Assessment and plan: Chronic issue. Continue treatment with methotrexate and hydroxycholorquine. Qualifiers: Rheumatoid arthritis location: unspecified site Rheumatoid factor presence: unspecified presence Qualified Code(s): M06.9 - Rheumatoid arthritis, unspecified (7) UTI (urinary tract infection) Current Visit: No Status: Resolved Assessment and plan: Culture was negative. No need for treatment. Qualifiers: Urinary tract infection type: acute cystitis Hematuria presence: with hematuria Qualified Code(s): N30.01 - Acute cystitis with hematuria (8) Osteoporosis Current Visit: No Status: Chronic Assessment and plan: Patient is a fall risk. Qualifiers: Osteoporosis type: unspecified Presence of current pathological fracture: unspecified Qualified Code(s): M81.0 - Age-related osteoporosis without current pathological fracture (9) GERD (gastroesophageal reflux disease) Current Visit: No Status: Acute Assessment and plan: Continue famotidine therapy. Qualifiers: Esophagitis presence: esophagitis presence not specified Qualified Code(s): K21.9 - Gastro-esophageal reflux disease without esophagitis (10) Hyponatremia Current Visit: No Status: Resolved Assessment and plan: Sodium continue to stay in the normal range. (11) Pneumonia Current Visit: Yes Status: Resolved Assessment and plan: Patient lung CT showed fibrotic changes without pneumonia. Patient has a history of RA which is the suspected cause of the fibrotic changes. No treatment for pneumonia needed. Qualifiers: Pneumonia type: due to unspecified organism Laterality: bilateral Lung location: lower lobe of lung Qualified Code(s): J18.1 - Lobar pneumonia, unspecified organism (12) Renal mass, right Current Visit: Yes Status: Acute Assessment and plan: Patient will f/u with outpatient urology. (13) Elevated lactic acid level Current Visit: Yes Status: Resolved Assessment and plan: lactic acid level remains normal after IV fluids were given. - Subjective Interval history: Patient states she is feeling better today. She still feels fatigued and weak. She states she does not feel stable when she get up from the bed, but would like to get up and move more. When questioned about at home nebulizer use, patient states that it treatment helps but she does not use it regularly. Patient admits to dry mouth and sore throat. Denies any chest pain. - Constitutional Vitals: Temp Pulse Resp BP Pulse Ox 97.7 F 87 20 155/80 92 09/25/18 04:00 09/25/18 04:00 09/25/18 04:00 09/25/18 04:00 09/25/18 04:00 General appearance: Present: A&O X 3, pleasant, answers questions appropriately. Absent: no acute distress - Respiratory Respiratory exam: Present: decreased breath sounds, tachypnea Additional comments: Crackles throughout her lungs from fibrosis - Cardiovascular Cardiovascular exam: Present: RRR, +S1, +S2 - GI/Abdominal GI/Abdominal exam: Present: soft. Absent: hepatomegaly, splenomegaly, tenderness Internal Medicine: Result - Labs CBC & Chem 7: 09/25/18 05:20 09/25/18 05:20 Labs: Short CBC 09/25/18 Range/Units 05:20 WBC 15.2 H (4.3-11.1) K/mcL Hgb 11.2 L (11.5-15.4) g/dL Hct 34.8 L (35.3-44.9) % Plt Count 290 (140-400) K/mcL Neutrophils # 13.7 H (1.6-8.9) K/mcL BMP 09/25/18 05:20 Sodium 139 Potassium 4.1 Chloride 107 Carbon Dioxide 25 BUN 19 Creatinine 0.76 Glucose 137 H Calcium 8.6 - ABG Interpretation ABG results: PT/INR, D-dimer PT 12.1 Seconds (9.4-12.1) 09/24/18 05:02 D-Dimer 772 ng/mLFEU (0-500) H 09/22/18 21:35 Interpretation: normal Additional comments: Patient was screen for PE. - EKG Interpretation EKG shows normal: sinus rhythm Rate: normal Consult Discharge Plan - Plan Referrals: Imer Marin MD [Primary Care Provider] -
[2018-09-25] MEDS: Aspirin Enteric Coated 325 MG Tablet PO SCH ×2 (10:04→22:35)
[2018-09-25] MEDS: Vitamin B Complex/Vit C/Vit E 1 EACH TABLET PO SCH (10:04)
[2018-09-25] MEDS: Ipratropium/Albuterol Neb 3 ML IH SCH ×3 (10:04→22:36)
[2018-09-25] MEDS: amLODIPine 5 MG TABLET PO SCH (10:04)
[2018-09-25] MEDS: Famotidine 20 MG TABLET PO SCH (10:04)
--- NOTE | 2018-09-25 17:23 | Event Note ---
Date of Encounter: 09/26/18 Time of Encounter: 17:23 The patient has been having difficulties with swallowing and having regurgitation. She has not had abdominal pain or nausea per se, and the nurse witnessed that after drinking some tea or eating some bites of food it will just suddenly come back up. Patient states that sometimes she gets nervous and this has happened previously at home. She still has some cough but no major breathing problems. Her lungs showed fibrotic crackles in the bases but no respiratory distress. She is on room air. Her abdomen is soft and nontender. Her heart examination is normal. She will have speech therapy evaluation tomorrow. We are trying to give her medications in pudding or applesauce. She has not had any morning meds as of now. Her blood pressure has been going up and we are monitoring.
[2018-09-26] MEDS: Ipratropium/Albuterol Neb 3 ML IH SCH ×4 (04:43→21:14)
[2018-09-26] MEDS: methylPREDNISolone 125 MG/2 ML VIAL IVP SCH ×2 (04:43→16:45)
[2018-09-26] MEDS: levoFLOXacin 500 MG/100 ML 500 MG/100 ML BAG IVPB SCH (04:43)
[2018-09-26] MEDS: *HR* Enoxaparin 30 MG/0.3 ML SYRINGE SQ SCH (04:43)
[2018-09-26 06:07] LABS: Basophils % 0.1 %; Hematocrit 34.1 % (35.3-44.9); Hemoglobin 11.2 g/dL (11.5-15.4); Immature Granulocytes % 1.6 % (0-4); Lymphocytes # 0.5 K/mcL (0.6-4.6); Lymphocytes % 4.5 %; Mean Corpuscular HGB Conc 32.8 g/dL (31.6-35.5); Mean Corpuscular Hemoglobin 33.3 pg (28.0-33.3); Mean Corpuscular Volume 101.5 fL (83.0-100.0); Mean Platelet Volume 9.4 fL (9.4-12.4); Monocytes # 0.9 K/mcL (0.0-1.3); Monocytes % 7.7 %; Neutrophils # 9.9 K/mcL (1.6-8.9); Platelet Count 276 K/mcL (140-400); Red Blood Count 3.36 M/mcL (3.82-4.97); Red Cell Distribution Width 14.2 % (11.5-14.5); Segmented Neutrophils % 86.1 %; White Blood Count 11.5 K/mcL (4.3-11.1)
[2018-09-26 06:17] LABS: Alanine Aminotransferase 22 Units/L (7-52); Albumin 3.2 g/dL (3.5-5.7); Albumin/Globulin Ratio 1.5 (1.1-2.2); Alkaline Phosphatase 32 Units/L (34-104); Amylase 32 Units/L (29-103); Aspartate Amino Transferase 32 Units/L (13-39); BUN/Creatinine Ratio 28 (6-26); Bilirubin,Total 0.5 mg/dL (0.3-1.0); Blood Urea Nitrogen 20 mg/dL (8-23); Calcium 8.5 mg/dL (8.6-10.3); Carbon Dioxide 24 mEq/L (23-29); Chloride 106 mEq/L (98-107); Globulin 2.2 g/dL (2.4-3.5); Glucose 152 mg/dL (70-105); Lipase 54 Units/L (11-82); Osmolality,Calculated 290 (280-300); Potassium 3.1 mEq/L (3.5-5.1); Sodium 137 mEq/L (136-145); Total Protein 5.4 g/dL (6.4-8.9); eGFR For African Americans > 60 (> 60); eGFR For Non-African Americans > 60 (> 60)
[2018-09-26] MEDS: Aspirin Enteric Coated 325 MG Tablet PO SCH ×2 (08:20→20:47)
[2018-09-26] MEDS: Vitamin B Complex/Vit C/Vit E 1 EACH TABLET PO SCH (08:20)
[2018-09-26] MEDS: Famotidine 20 MG TABLET PO SCH (08:20)
--- NOTE | 2018-09-26 08:22 | Internal Med Progress Note ---
Date of Encounter: 09/26/18 Time of Encounter: 08:20 - Assessment and plan (1) Essential hypertension Current Visit: No Status: Chronic (2) Hypokalemia Current Visit: No Status: Resolved (3) Pneumonia Current Visit: Yes Status: Resolved Assessment and plan: Patient was admitted for presumed pneumonia. However it is most likely fibrosis from her rheumatoid arthritis. She has been receiving Levaquin showing improvement. Qualifiers: Pneumonia type: due to unspecified organism Laterality: bilateral Lung location: lower lobe of lung Qualified Code(s): J18.1 - Lobar pneumonia, u nspecified organism (4) Acute exacerbation of chronic obstructive airways disease Current Visit: Yes Status: Acute Assessment and plan: She is markedly improved and her saturations are good on room air. Nebulizers have been helpful. (5) Renal mass, right Current Visit: Yes Status: Acute Assessment and plan: We will arrange outpatient evaluation/consultation. 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 Her lung findings are stable. She is on room air. We are tapering her steroids. (7) DVT prophylaxis Current Visit: Yes Status: Resolved Assessment and plan: Patient on Lovenox for DVT prophylaxis - Subjective Interval history: Patient states that she feels better now. She is off to a good start this morning. She is hungry and sitting up in a chair and ready to have breakfast. She denies any cardiac symptoms. She states her breathing seems good today. No significant coughing or sputum production. No cardiac symptoms. No abdominal pain or nausea. She states the side of her tongue feels sore. The nurse reports that through the night her blood pressure has been elevated, but a bit better right now. She had not received her morning medications until last evening because of the regurgitation and refused to swallow the meds until then. - Constitutional Vitals: Temp Pulse Resp BP Pulse Ox 97.9 F 96 16 171/87 95 09/26/18 06:40 09/26/18 06:40 09/26/18 06:40 09/26/18 06:40 09/26/18 06:40 General appearance: Present: A&O X 3, pleasant, answers questions appropriately. Absent: no acute distress Exam: Patient looks so much better this morning. She is dressed. She is sitting in a chair and getting ready for breakfast. - Respiratory Additional comments: patient's upper lung quintana are clear. Lower quintana show fibrotic type crackles. No respiratory distress. - Cardiovascular Cardiovascular exam: Present: RRR, +S1, +S2 - GI/Abdominal GI/Abdominal exam: Present: soft. Absent: tenderness - Extremities Exam Extremities exam: Absent: calf tenderness, pedal edema Internal Medicine: Result - Labs CBC & Chem 7: 09/26/18 05:40 09/26/18 05:40 Labs: Short CBC 09/26/18 Range/Units 05:40 WBC 11.5 H (4.3-11.1) K/mcL Hgb 11.2 L (11.5-15.4) g/dL Hct 34.1 L (35.3-44.9) % Plt Count 276 (140-400) K/mcL Neutrophils # 9.9 H (1.6-8.9) K/mcL BMP 09/26/18 05:40 Sodium 137 Potassium 3.1 L Chloride 106 Carbon Dioxide 24 BUN 20 Creatinine 0.71 Glucose 152 H Calcium 8.5 L Liver Function 09/26/18 Range/Units 05:40 Total Bilirubin 0.5 (0.3-1.0) mg/dL AST 32 (13-39) Units/L ALT 22 (7-52) Units/L Alkaline Phosphatase 32 L (34-104) Units/L Albumin 3.2 L (3.5-5.7) g/dL Labs have been reviewed. White blood count is nearly back to normal. Potassium low at 3.1. She has hypoproteinemia. - ABG Interpretation ABG results: PT/INR, D-dimer PT 12.1 Seconds (9.4-12.1) 09/24/18 05:02 D-Dimer 772 ng/mLFEU (0-500) H 09/22/18 21:35 - Impressions Impressions Chest/Abdomen X-ray 09/25/18 17:22 IMPRESSION: Negative examination. No radiographic findings to explain dysphagia and vomiting. D/ / Pravin Martinez MD / Pravin Martinez MD Interpreting Provider: Pravin Martinez MD Consult Discharge Plan - Plan Referrals: Imer Marin MD [Primary Care Provider] -
[2018-09-26] MEDS ORDERED: amLODIPine 5 MG TABLET PO SCH (09:00)
--- NOTE | 2018-09-26 19:04 | Event Note ---
Date of Encounter: 09/26/18 Time of Encounter: 19:02 I reevaluated the patient this evening. Today she ate well for the most part. She did have some regurgitation with "slimy stringy stuff" after dinner. She states she does this about twice a week at home. She denies any cardiac type chest pain. She is on room air. She thinks her breathing is back to normal. Her blood pressure however is elevated but she has no FRAME ALIGNER changes, chest pain palpitations or unilateral focal deficit. Her lungs show chronic fibrotic changes. Heart regular rate without murmur or gallop. Lower extremities show indentation at her sock line. We will recheck her potassium tomorrow as she started supplement today. If she looks this good tomorrow she may be able to go home. We are tapering IV steroids.
[2018-09-26] MEDS ORDERED: amLODIPine 5 MG TABLET PO ONE (20:45)
[2018-09-27] MEDS: Ipratropium/Albuterol Neb 3 ML IH SCH ×2 (04:41→09:56)
[2018-09-27] MEDS ORDERED: *HR* Enoxaparin 40 MG/0.4 ML SYRINGE SQ SCH (06:00)
[2018-09-27 08:04] VITALS: BP 169/91
[2018-09-27] MEDS: Famotidine 20 MG TABLET PO SCH (08:32)
[2018-09-27] MEDS: Vitamin B Complex/Vit C/Vit E 1 EACH TABLET PO SCH (08:32)
[2018-09-27] MEDS: Aspirin Enteric Coated 325 MG Tablet PO SCH (08:32)
[2018-09-27] MEDS ORDERED: predniSONE 20 MG TABLET PO SCH (09:00)
[2018-09-27] MEDS ORDERED: amLODIPine 5 MG TABLET PO SCH (09:00)
--- NOTE | 2018-09-27 10:11 | Discharge Summary ---
- NOTES TO OUTPATIENT PROVIDER Notes to Outpatient Provider: #1. Patient discharged on taper of prednisone. #2. Amlodipine 10 mg was added and losartan increased from 25 mg to 100 mg due to accelerated blood pressure. #3. Incidental finding of 1.7 cm left renal lesion, not sure if cystic or solid. Consideration for further evaluation versus watching discussed. Date of Encounter: 09/27/18 Time of Encounter: 09:58 - Discharge Diagnosis (1) Acute exacerbation of chronic obstructive airways disease Priority: Primary Status: Acute Comments: Patient was admitted with dyspnea hypoxia and cough. The ER felt she may have had pneumonia as she has crackles in her lungs, however CT scan failed to show a specific infiltrate. Likely the crackles are related to her interstitial lung disease/fibrosis. Nonetheless, she was placed on Levaquin, aggressive aerosol treatments, IV steroids and she showed great improvement. By time of discharge she was on room air, tapered off the IV site Medrol to oral prednisone, was ambulatory in the hallways and did well with maintaining good saturations. She is able to maintain her ADLs and she was discharged to home in much improved condition. She will follow-up in the office with me next week. She has previously seen Dr. Marrero as her banking services advisor (2) Essential hypertension Priority: Secondary Status: Chronic Comments: Patient has a history of chronic hypertension. However, during this hospital stay, her pressures increased significantly to 160-180 systolic range. The losartan was increased but we also added amlodipine and by time of discharge her blood pressures were much improved. She tolerated that change well. She had no symptoms with her hypertension. She will have follow-up in the office. I recommended getting blood pressures in the meantime at home. (3) Hypokalemia Priority: Secondary Status: Resolved Comments: She had hypokalemia during the hospital stay. IV potassium was added to her intravenous fluids. She was not discharged on a supplemental potassium as her losartan was increased. We will recheck again in the office. (4) Pneumonia Priority: Secondary Status: Resolved Comments: When she was admitted via the ER they felt that she may have pneumonia because she has crackles in her lung quintana and abnormal chest x-ray. She had elevated white blood cell count of 20,000. She was placed on Levaquin and had blood cultures drawn. Cultures were negative. CT scan later done did not show any in filtrates. Her white blood cell count did improve. We did continue the Levaquin. She did not need further antibiotics at time of discharge. Qualifiers: Pneumonia type: due to unspecified organism Laterality: bilateral Lung location: lower lobe of lung Qualified Code(s): J18.1 - Lobar pneumonia, unspecified organism (5) Renal mass, right Priority: Secondary Status: Acute Comments: When she had her CT scan in the ER of her lungs there was an incidental finding of a 1.7 cm lesion in the left upper pole of her kidney. They recommended further evaluation as they could not tell whether it was cystic or solid. Patient was told that we can make arranges with urology as an outpatient. Given her age I do not suspect were going to pursue this any further. We will check with urology though. (6) Interstitial lung disease Priority: Secondary Status: Acute Comments: She has chronic interstitial lung disease. She also has known rheumatoid arthritis and takes methotrexate. She is being followed by banking services advisor. She uses nebulizer treatments at home. Overall her pulmonary status improved compared to admission. (7) DVT prophylaxis Priority: Secondary Status: Resolved Comments: Patient received Lovenox for DVT prophylaxis without complication. Hospital course: Ms. Hawthorne is a 83 year old female admitted with hypoxia exacerbation of COPD/dyspnea and presumed pneumonia. Please see the diagnoses above. - Time Spent with Patient Total time spent providing and/or coordinating discharge services: - Discharge Medications Prescriptions: New amLODIPine [Norvasc] 10 mg PO DAILY #30 tablet predniSONE [PredniSONE] See Taper PO DAILY 18 Days #63 tablet Continued Ranitidine HCl [Zantac] 150 mg PO DAILY Alendronate Sodium 70 mg PO SA Methotrexate [Otrexup] 2.5 mg PO SA Hydroxychloroquine [Plaquenuil] 200 mg PO DAILY Calcium Carbonate/Vitamin D3 [Calcium 600 + D Tablet] 1 each PO DAILY Calcium/Vit B12/FA/Pyridoxine [Folic Acid-Vit B6-Vit B12 Tab] 1 each PO DAILY Acetaminophen [Tylenol] 650 mg PO Q6HR PRN tablet PRN Reason: mild pain/fever Albuterol Sulfate 2.5 mg IH Q4HR PRN #1 vial.neb PRN Reason: Wheezing Albuterol Sulfate [Proair Hfa] 1 puff IH Q4-6H PRN #1 inh PRN Reason: Wheezing Aspirin Enteric Coated [Aspirin EC] 325 mg PO BID #60 tablet. Loratadine [Allergy Relief] 10 mg PO DAILY PRN #1 tablet PRN Reason: Allergy Symptoms Multivit-Min/Iron/Folic Acid/K [Adults Multivitamin Tablet] 1 each PO DAILY Changed Losartan [Cozaar] 100 mg PO DAILY #30 tablet Discontinued PredniSONE 5 mg PO DAILY OxyCODONE/APAP 5/325 [Percocet 5/325 MG] 1 - 2 each PO Q6HR PRN 7 Days #60 tablet PRN Reason: Severe Pain Home Medications: Alendronate Sodium 70 mg PO SA 11/30/14 [History] Calcium Carbonate/Vitamin D3 [Calcium 600 + D Tablet] 1 each PO DAILY 11/30/14 [History] Hydroxychloroquine [Plaquenuil] 200 mg PO DAILY 11/30/14 [History] Methotrexate [Otrexup] 2.5 mg PO SA 11/30/14 [History] Ranitidine HCl [Zantac] 150 mg PO DAILY 11/30/14 [History] Calcium/Vit B12/FA/Pyridoxine [Folic Acid-Vit B6-Vit B12 Tab] 1 each PO DAILY 06/06/15 [History] Acetaminophen [Tylenol] 650 mg PO Q6HR PRN tablet 05/13/17 [Rx] Albuterol Sulfate 2.5 mg IH Q4HR PRN #1 vial.neb 05/13/17 [Rx] Albuterol Sulfate [Proair Hfa] 1 puff IH Q4-6H PRN #1 inh 05/13/17 [Rx] Aspirin Enteric Coated [Aspirin EC] 325 mg PO BID #60 tablet. 05/13/17 [Rx] Loratadine [Allergy Relief] 10 mg PO DAILY PRN #1 tablet 05/13/17 [Rx] Multivit-Min/Iron/Folic Acid/K [Adults Multivitamin Tablet] 1 each PO DAILY 09/23/18 [History] Losartan [Cozaar] 100 mg PO DAILY #30 tablet 09/27/18 [Rx] amLODIPine [Norvasc] 10 mg PO DAILY #30 tablet 09/27/18 [Rx] predniSONE [PredniSONE] See Taper PO DAILY 18 Days #63 tablet 09/27/18 [Rx] Allergies/Adverse Reactions: Allergy/AdvReac Type Severity Reaction Status Date / Time No Known Allergies Allergy Verified 09/23/18 04:09 Date of admission: 09/23/18 04:54 Primary care physician: Imer Marin MD Consults: 09/25/18 13:56 Consult to Speech Therapy [CONS] Routine Comment: Evaluate, develop and implement POC Reason for Consult: swallowing issues Call Completed: No Discharging clinician: Imer Marin Anticipated date of discharge: 09/27/18 - Constitutional Vitals: Temp Pulse Resp BP Pulse Ox 98.2 F 98 16 169/91 92 09/27/18 08:03 09/27/18 08:03 09/27/18 08:03 09/27/18 08:03 09/27/18 08:03 General appearance: Present: A&O X 3, pleasant, answers questions appropriately. Absent: no acute distress - Respiratory Additional comments: Upper lobes are clear. Lower lobes show fibrotic type crackles, right base is worse than left base. No respiratory distress. Saturations are are good in the 90s on room air. - Cardiovascular Cardiovascular exam: Present: RRR, +S1, +S2 - GI/Abdominal GI/Abdominal exam: Present: soft. Absent: tenderness - Extremities Exam Additional comments: Slight indentation at her sock line. Otherwise no edema or calf tenderness. - Patient Status Disposition: Home, Self-Care Condition: Good Functional capacity at discharge: independent ambulation Overall status at discharge: patient is progressing back to baseline - Discharge Instructions Instructions: Chronic Obstructive Pulmonary Disease (DC) Follow Up With: Imer Marin MD [Primary Care Provider] - 10/02/18 2:00 pm - Diet and Activity Activity: increase activity as tolerated Diet: low salt diet
[2018-09-27 15:35] LABS: Estimated Average Glucose 120 mg/dl
[2018-09-28] MEDS ORDERED: levoFLOXacin 500 MG/100 ML 500 MG/100 ML BAG IVPB SCH (05:00)
== END 2018-09-27 10:50 | disposition home or self-care (01) | DRG 190 ==
LOC: INPGRE 21:01 → EMEROOGRE 21:01 → INPGRE 09-23 04:30
PROVIDERS: ADMIT Family Medicine; ATTEND Family Medicine

== ENCOUNTER 2018-12-20 11:34 | Inpatient (IN) ==
[2018-12-20] MEDS ORDERED: methylPREDNISolone 125 MG/2 ML VIAL IVP ONE (11:47)
[2018-12-20] MEDS ORDERED: Ipratropium/Albuterol Neb 3 ML IH ONE (11:47)
[2018-12-20 12:05] LABS: Basophils % 0.1 %; Eosinophils % 0.3 %; Hematocrit 33.5 % (35.3-44.9); Hemoglobin 10.8 g/dL (11.5-15.4); Lymphocytes # 0.5 K/mcL (0.6-4.6); Lymphocytes % 3.1 %; Mean Corpuscular HGB Conc 32.2 g/dL (31.6-35.5); Mean Corpuscular Hemoglobin 33.5 pg (28.0-33.3); Mean Platelet Volume 9.3 fL (9.4-12.4); Monocytes # 1.3 K/mcL (0.0-1.3); Monocytes % 8.8 %; Platelet Count 487 K/mcL (140-400); Red Blood Count 3.22 M/mcL (3.82-4.97); Red Cell Distribution Width 16.6 % (11.5-14.5); Segmented Neutrophils % 86.7 %; White Blood Count 14.7 K/mcL (4.3-11.1)
[2018-12-20 12:06] LABS: Neutrophils # 12.7 K/mcL (1.6-8.9)
[2018-12-20 12:07] LABS: VBG HCO3 20 mEq/L (21-27); VBG PCO2 33 mmHg (41-51); VBG PH 7.39 pH Units (7.32-7.42); VBG PO2 30 mmHg (25-50)
[2018-12-20 12:08] LABS: Prothrombin Time 11.6 Seconds (9.4-12.1)
[2018-12-20 12:11] LABS: Activated Partial Thrombo Time 33.8 Seconds (26.0-36.0)
[2018-12-20 12:16] LABS: Albumin 3.7 g/dL (3.5-5.7); Albumin/Globulin Ratio 1.1 (1.1-2.2); Bilirubin,Direct 0.2 mg/dL (0.0-0.2); Bilirubin,Indirect 0.4 mg/dL (0.0-1.0); Bilirubin,Total 0.6 mg/dL (0.3-1.0); Calcium 9.3 mg/dL (8.6-10.3); Globulin 3.3 g/dL (2.4-3.5); Potassium 4.1 mEq/L (3.5-5.1)
[2018-12-20] MEDS ORDERED: 0.9 % Sodium Chloride 250 ML IVC ONE (12:29)
[2018-12-20] MEDS ORDERED: levoFLOXacin 500 MG/100 ML 500 MG/100 ML BAG IVPB SCH (12:30)
[2018-12-20] MEDS ORDERED: [UNRECOGNIZED DRUG - OTHER] PO SCH (16:14)
[2018-12-20] MEDS ORDERED: VIT B12 PO SCH (16:14)
[2018-12-20] MEDS ORDERED: CALCIUM PO SCH (16:14)
[2018-12-20] MEDS ORDERED: Naloxone 0.4 MG/ML INJ IVP PRN (16:14)
[2018-12-20] MEDS ORDERED: 0.9 % Sodium Chloride 1,000 ML IVC SCH (16:14)
[2018-12-20] MEDS ORDERED: PYRIDOXINE PO SCH (16:14)
[2018-12-20] MEDS: amLODIPine 5 MG TABLET PO SCH (16:38)
[2018-12-20] MEDS: Ipratropium/Albuterol Neb 3 ML IH SCH ×2 (16:59→21:49)
[2018-12-20] MEDS: Famotidine 20 MG TABLET PO SCH (17:46)
[2018-12-20] MEDS: Multivit/Ca/Min/Fe/FA 1 TAB TABLET PO SCH (17:46)
[2018-12-21] MEDS: Ipratropium/Albuterol Neb 3 ML IH SCH ×4 (05:02→22:38)
[2018-12-21] MEDS: *HR* Enoxaparin 30 MG/0.3 ML SYRINGE SQ SCH (06:05)
[2018-12-21] MEDS ORDERED: methylPREDNISolone 125 MG/2 ML VIAL IVP SCH (09:00)
[2018-12-21] MEDS: Folic Acid 1 MG TABLET PO SCH (09:02)
[2018-12-21] MEDS: Multivit/Ca/Min/Fe/FA 1 TAB TABLET PO SCH (09:02)
[2018-12-21] MEDS: Famotidine 20 MG TABLET PO SCH (09:02)
[2018-12-21] MEDS: Cholecalciferol (D-3) 1,000 UNIT (25MCG) TABLET PO SCH (09:03)
[2018-12-21] MEDS: amLODIPine 5 MG TABLET PO SCH (09:03)
[2018-12-21] MEDS ORDERED: levoFLOXacin 750 MG/150 ML 750 MG/150 ML BAG IVPB SCH (12:00)
[2018-12-21] MEDS: levoFLOXacin 750 MG/150 ML 750 MG/150 ML BAG IVPB SCH (12:41)
[2018-12-22] MEDS: Ipratropium/Albuterol Neb 3 ML IH SCH ×4 (04:04→23:02)
[2018-12-22] MEDS: *HR* Enoxaparin 30 MG/0.3 ML SYRINGE SQ SCH (05:44)
[2018-12-22] MEDS: Cholecalciferol (D-3) 1,000 UNIT (25MCG) TABLET PO SCH (09:09)
[2018-12-22] MEDS: amLODIPine 5 MG TABLET PO SCH (09:09)
[2018-12-22] MEDS: Folic Acid 1 MG TABLET PO SCH (09:09)
[2018-12-22] MEDS: Famotidine 20 MG TABLET PO SCH (09:09)
[2018-12-22] MEDS: Multivit/Ca/Min/Fe/FA 1 TAB TABLET PO SCH (09:10)
[2018-12-22] MEDS: methylPREDNISolone 125 MG/2 ML VIAL IVP SCH (09:10)
[2018-12-23] MEDS: Ipratropium/Albuterol Neb 3 ML IH SCH ×2 (04:00→11:18)
[2018-12-23] MEDS: *HR* Enoxaparin 30 MG/0.3 ML SYRINGE SQ SCH (04:00)
[2018-12-23 05:54] LABS: Basophils % 0.1 %; Immature Granulocytes % 3.1 % (0-4); Lymphocytes # 0.4 K/mcL (0.6-4.6); Lymphocytes % 2.8 %; Mean Corpuscular HGB Conc 32.1 g/dL (31.6-35.5); Mean Corpuscular Hemoglobin 33.1 pg (28.0-33.3); Mean Corpuscular Volume 102.9 fL (83.0-100.0); Monocytes # 1.3 K/mcL (0.0-1.3); Monocytes % 9.2 %; Neutrophils # 12.4 K/mcL (1.6-8.9); Platelet Count 441 K/mcL (140-400); Red Blood Count 2.72 M/mcL (3.82-4.97); Red Cell Distribution Width 16.5 % (11.5-14.5); Segmented Neutrophils % 84.8 %; White Blood Count 14.6 K/mcL (4.3-11.1)
[2018-12-23 06:13] LABS: BUN/Creatinine Ratio 43 (6-26); Blood Urea Nitrogen 42 mg/dL (8-23); Carbon Dioxide 27 mEq/L (23-29); Chloride 102 mEq/L (98-107); Glucose 151 mg/dL (70-105); Osmolality,Calculated 291 (280-300); Potassium 4.7 mEq/L (3.5-5.1); Sodium 134 mEq/L (136-145); eGFR For African Americans > 60 (> 60); eGFR For Non-African Americans 54 (> 60)
[2018-12-23] MEDS: Famotidine 20 MG TABLET PO SCH (08:11)
[2018-12-23] MEDS: amLODIPine 5 MG TABLET PO SCH (08:11)
[2018-12-23] MEDS: Folic Acid 1 MG TABLET PO SCH (08:11)
[2018-12-23] MEDS: Multivit/Ca/Min/Fe/FA 1 TAB TABLET PO SCH (08:11)
[2018-12-23] MEDS: Cholecalciferol (D-3) 1,000 UNIT (25MCG) TABLET PO SCH (08:11)
[2018-12-23] MEDS: methylPREDNISolone 125 MG/2 ML VIAL IVP SCH (08:12)
[2018-12-23 08:39] VITALS: BP 113/74
[2018-12-23] MEDS: levoFLOXacin 750 MG/150 ML 750 MG/150 ML BAG IVPB SCH (11:47)
[2018-12-23] MEDS ORDERED: NON-FORMULARY MEDICATION 1 EACH EACH (Alendronate Sodium 70 MG) PO SCH (12:55)
[2018-12-23] MEDS ORDERED: *HR* Methotrexate 2.5 MG TABLET PO SCH (12:55)
== END 2018-12-23 12:18 | disposition other institution (70) | DRG 194 ==
LOC: EMEROOGRE 11:34 → INPGRE 13:16
PROVIDERS: ADMIT Family Medicine; ATTEND Family Medicine

== ENCOUNTER 2018-12-23 12:21 | Inpatient (IN) ==
[2018-12-23] MEDS ORDERED: Albuterol 2.5 MG/3 ML NEBULIZER IH PRN (12:41)
[2018-12-23] MEDS ORDERED: traMADol 50 MG TABLET PO PRN (12:41)
[2018-12-23] MEDS ORDERED: *HR* Methotrexate 2.5 MG TABLET PO SCH (13:00)
[2018-12-23] MEDS: Ipratropium/Albuterol Neb 3 ML IH SCH ×2 (16:25→21:47)
[2018-12-24] MEDS: Ipratropium/Albuterol Neb 3 ML IH SCH ×4 (04:16→22:18)
[2018-12-24 05:29] LABS: Calcium 8.9 mg/dL (8.6-10.3); Potassium 4.9 mEq/L (3.5-5.1)
[2018-12-24] MEDS: *HR* Enoxaparin 30 MG/0.3 ML SYRINGE SQ SCH (05:47)
[2018-12-24] MEDS: Famotidine 20 MG TABLET PO SCH (07:58)
[2018-12-24] MEDS: methylPREDNISolone 125 MG/2 ML VIAL IVP SCH (07:58)
[2018-12-24] MEDS: Cholecalciferol (D-3) 1,000 UNIT (25MCG) TABLET PO SCH (07:58)
[2018-12-24] MEDS: amLODIPine 5 MG TABLET PO SCH (07:59)
[2018-12-24] MEDS: Folic Acid 1 MG TABLET PO SCH (07:59)
[2018-12-24] MEDS: Multivit/Ca/Min/Fe/FA 1 TAB TABLET PO SCH (07:59)
[2018-12-24] MEDS: Magic Mouthwash 10 ML UD Cup PO PRN ×2 (11:59→16:16)
[2018-12-24] MEDS ORDERED: 0.9 % Sodium Chloride 500 ML IVC ONE (16:12)
[2018-12-24] MEDS ORDERED: 0.9 % Sodium Chloride 500 ML ONE (16:34)
[2018-12-25] MEDS: Ipratropium/Albuterol Neb 3 ML IH SCH ×4 (03:57→21:22)
[2018-12-25] MEDS: *HR* Enoxaparin 30 MG/0.3 ML SYRINGE SQ SCH (04:20)
[2018-12-25 05:53] LABS: BUN/Creatinine Ratio 55 (6-26); Blood Urea Nitrogen 56 mg/dL (8-23); Calcium 8.2 mg/dL (8.6-10.3); Carbon Dioxide 27 mEq/L (23-29); Chloride 99 mEq/L (98-107); Glucose 134 mg/dL (70-105); Osmolality,Calculated 287 (280-300); Potassium 4.9 mEq/L (3.5-5.1); Sodium 130 mEq/L (136-145); eGFR For African Americans > 60 (> 60); eGFR For Non-African Americans 52 (> 60)
[2018-12-25] MEDS: methylPREDNISolone 125 MG/2 ML VIAL IVP SCH (08:53)
[2018-12-25] MEDS: Famotidine 20 MG TABLET PO SCH (08:53)
[2018-12-25] MEDS: Cholecalciferol (D-3) 1,000 UNIT (25MCG) TABLET PO SCH (08:53)
[2018-12-25] MEDS: amLODIPine 5 MG TABLET PO SCH (08:53)
[2018-12-25] MEDS: Folic Acid 1 MG TABLET PO SCH (08:53)
[2018-12-25] MEDS: Multivit/Ca/Min/Fe/FA 1 TAB TABLET PO SCH (08:53)
[2018-12-25] MEDS ORDERED: levoFLOXacin 750 MG/150 ML 750 MG/150 ML BAG IVPB SCH (12:00)
[2018-12-25] MEDS: Magic Mouthwash 10 ML UD Cup PO PRN (17:45)
[2018-12-26] MEDS: *HR* Enoxaparin 30 MG/0.3 ML SYRINGE SQ SCH (05:47)
[2018-12-26] MEDS: Ipratropium/Albuterol Neb 3 ML IH SCH ×4 (05:47→20:57)
[2018-12-26] MEDS: Cholecalciferol (D-3) 1,000 UNIT (25MCG) TABLET PO SCH (08:42)
[2018-12-26] MEDS: Famotidine 20 MG TABLET PO SCH (08:42)
[2018-12-26] MEDS: methylPREDNISolone 125 MG/2 ML VIAL IVP SCH (08:42)
[2018-12-26] MEDS: amLODIPine 5 MG TABLET PO SCH (08:42)
[2018-12-26] MEDS: Multivit/Ca/Min/Fe/FA 1 TAB TABLET PO SCH (08:42)
[2018-12-26] MEDS: Folic Acid 1 MG TABLET PO SCH (08:42)
[2018-12-27] MEDS: Ipratropium/Albuterol Neb 3 ML IH SCH ×4 (05:29→22:41)
[2018-12-27] MEDS: *HR* Enoxaparin 30 MG/0.3 ML SYRINGE SQ SCH (05:29)
[2018-12-27] MEDS: methylPREDNISolone 125 MG/2 ML VIAL IVP SCH (09:04)
[2018-12-27] MEDS: amLODIPine 5 MG TABLET PO SCH (09:04)
[2018-12-27] MEDS: Folic Acid 1 MG TABLET PO SCH (09:04)
[2018-12-27] MEDS: Multivit/Ca/Min/Fe/FA 1 TAB TABLET PO SCH (09:04)
[2018-12-27] MEDS: Cholecalciferol (D-3) 1,000 UNIT (25MCG) TABLET PO SCH (09:04)
[2018-12-27] MEDS: Famotidine 20 MG TABLET PO SCH (09:06)
[2018-12-27] MEDS: Magic Mouthwash 10 ML UD Cup PO PRN (14:39)
[2018-12-28] MEDS: *HR* Enoxaparin 30 MG/0.3 ML SYRINGE SQ SCH (04:14)
[2018-12-28] MEDS: Ipratropium/Albuterol Neb 3 ML IH SCH ×4 (04:17→22:08)
[2018-12-28 06:05] LABS: Basophils % 0.2 %; Hematocrit 25.7 % (35.3-44.9); Hemoglobin 8.3 g/dL (11.5-15.4); Immature Granulocytes % 4.9 % (0-4); Lymphocytes # 0.4 K/mcL (0.6-4.6); Lymphocytes % 2.3 %; Mean Corpuscular HGB Conc 32.3 g/dL (31.6-35.5); Mean Corpuscular Hemoglobin 32.5 pg (28.0-33.3); Mean Corpuscular Volume 100.8 fL (83.0-100.0); Mean Platelet Volume 8.7 fL (9.4-12.4); Monocytes # 1.4 K/mcL (0.0-1.3); Monocytes % 8.2 %; Neutrophils # 14.4 K/mcL (1.6-8.9); Nucleated Red Blood Cells 0.2 /100 WBC (0); Platelet Count 349 K/mcL (140-400); Red Blood Count 2.55 M/mcL (3.82-4.97); Red Cell Distribution Width 15.9 % (11.5-14.5); Segmented Neutrophils % 84.4 %
[2018-12-28 06:21] LABS: BUN/Creatinine Ratio 60 (6-26); Blood Urea Nitrogen 53 mg/dL (8-23); Carbon Dioxide 28 mEq/L (23-29); Chloride 95 mEq/L (98-107); Glucose 126 mg/dL (70-105); Osmolality,Calculated 282 (280-300); Potassium 4.8 mEq/L (3.5-5.1); Sodium 128 mEq/L (136-145); eGFR For African Americans > 60 (> 60); eGFR For Non-African Americans > 60 (> 60)
[2018-12-28] MEDS: methylPREDNISolone 125 MG/2 ML VIAL IVP SCH (09:27)
[2018-12-28] MEDS: Multivit/Ca/Min/Fe/FA 1 TAB TABLET PO SCH (09:29)
[2018-12-28] MEDS: Folic Acid 1 MG TABLET PO SCH (09:29)
[2018-12-28] MEDS: amLODIPine 5 MG TABLET PO SCH (09:29)
[2018-12-28] MEDS: Famotidine 20 MG TABLET PO SCH (09:30)
[2018-12-28] MEDS: Cholecalciferol (D-3) 1,000 UNIT (25MCG) TABLET PO SCH (09:30)
[2018-12-28] MEDS ORDERED: Oxymetazoline Nasal SPRAY BOTTLE NS PRN (10:12)
[2018-12-29] MEDS: *HR* Enoxaparin 30 MG/0.3 ML SYRINGE SQ SCH (03:41)
[2018-12-29] MEDS: Ipratropium/Albuterol Neb 3 ML IH SCH ×4 (04:15→22:04)
[2018-12-29 04:48] LABS: Hematocrit 27.2 % (35.3-44.9); Hemoglobin 8.9 g/dL (11.5-15.4); Mean Corpuscular HGB Conc 32.7 g/dL (31.6-35.5); Mean Corpuscular Hemoglobin 33.3 pg (28.0-33.3); Mean Corpuscular Volume 101.9 fL (83.0-100.0); Mean Platelet Volume 9.4 fL (9.4-12.4); Platelet Count 378 K/mcL (140-400); Red Blood Count 2.67 M/mcL (3.82-4.97); Red Cell Distribution Width 16.3 % (11.5-14.5); White Blood Count 19.1 K/mcL (4.3-11.1)
[2018-12-29 05:03] LABS: Lymphocytes # 1.2 K/mcL (0.6-4.6); Monocytes # 0.8 K/mcL (0.0-1.3); Platelet Estimate Normal (Normal)
[2018-12-29 05:07] LABS: BUN/Creatinine Ratio 60 (6-26); Blood Urea Nitrogen 52 mg/dL (8-23); Calcium 8.2 mg/dL (8.6-10.3); Carbon Dioxide 27 mEq/L (23-29); Chloride 93 mEq/L (98-107); Glucose 126 mg/dL (70-105); Osmolality,Calculated 280 (280-300); Sodium 127 mEq/L (136-145); eGFR For African Americans > 60 (> 60); eGFR For Non-African Americans > 60 (> 60)
[2018-12-29] MEDS: amLODIPine 5 MG TABLET PO SCH (08:16)
[2018-12-29] MEDS: Folic Acid 1 MG TABLET PO SCH (08:16)
[2018-12-29] MEDS: Multivit/Ca/Min/Fe/FA 1 TAB TABLET PO SCH (08:16)
[2018-12-29] MEDS: methylPREDNISolone 125 MG/2 ML VIAL IVP SCH (08:17)
[2018-12-29] MEDS: Magic Mouthwash 10 ML UD Cup PO PRN ×3 (08:17→23:24)
[2018-12-29] MEDS: Cholecalciferol (D-3) 1,000 UNIT (25MCG) TABLET PO SCH (08:17)
[2018-12-29 08:19] LABS: % Iron Saturation 14 % (15-50); Iron 42 mcg/dL (50-170); Transferrin 220 mg/dL (203-362)
[2018-12-30 03:09] LABS: Hematocrit 25.1 % (35.3-44.9); Hemoglobin 7.9 g/dL (11.5-15.4); Mean Corpuscular HGB Conc 31.5 g/dL (31.6-35.5); Mean Corpuscular Hemoglobin 33.5 pg (28.0-33.3); Mean Corpuscular Volume 106.4 fL (83.0-100.0); Mean Platelet Volume 9.4 fL (9.4-12.4); Platelet Count 367 K/mcL (140-400); Red Blood Count 2.36 M/mcL (3.82-4.97); Red Cell Distribution Width 16.8 % (11.5-14.5)
[2018-12-30 03:11] LABS: White Blood Count 34.6 K/mcL (4.3-11.1)
[2018-12-30 03:16] LABS: Prothrombin Time 11.7 Seconds (9.4-12.1)
[2018-12-30 03:19] LABS: Activated Partial Thrombo Time 23.4 Seconds (26.0-36.0)
[2018-12-30 03:28] LABS: Albumin 2.9 g/dL (3.5-5.7); Albumin/Globulin Ratio 1.4 (1.1-2.2); Bilirubin,Direct 0.1 mg/dL (0.0-0.2); Bilirubin,Indirect 0.2 mg/dL (0.0-1.0); Bilirubin,Total 0.3 mg/dL (0.3-1.0); Globulin 2.1 g/dL (2.4-3.5)
[2018-12-30] MEDS ORDERED: cefTRIAXone 1,000 MG in Water for inj. (sterile) 10 ML IVP ONE (03:39)
[2018-12-30] MEDS ORDERED: Pantoprazole 40 MG VIAL IVP ONE (03:39)
[2018-12-30] MEDS ORDERED: Octreotide 400 MCG in 0.9 % Sodium Chloride 100 ML IVC SCH (04:15)
[2018-12-30 04:34] LABS: Calcium 8.5 mg/dL (8.6-10.3); Potassium 6.4 mEq/L (3.5-5.1)
[2018-12-30 04:39] VITALS: BP 102/65
[2018-12-30] MEDS ORDERED: *HR* Enoxaparin 40 MG/0.4 ML SYRINGE SQ SCH (06:00)
[2018-12-30] MEDS ORDERED: *HR* Methotrexate 2.5 MG TABLET PO SCH (16:12)
== END 2018-12-30 05:25 | disposition other institution (70) | DRG 377 ==
LOC: INPGRE 12:21
PROVIDERS: ADMIT Family Medicine; ATTEND Family Medicine

== ENCOUNTER 2019-01-03 16:30 | Inpatient (IN) ==
[2019-01-05] MEDS ORDERED: NON-FORMULARY MEDICATION 1 EACH EACH (Alendronate Sodium 70 MG) PO SCH (15:45)
[2019-01-05] MEDS: valACYclovir 500 MG TABLET PO SCH (20:59)
[2019-01-05] MEDS: predniSONE 5 MG TABLET PO SCH (20:59)
[2019-01-06] MEDS ORDERED: Saline Nasal Spray 44 ML BOTTLE NS PRN (07:38)
[2019-01-06] MEDS: Fluconazole 100 MG TABLET PO SCH (08:45)
[2019-01-06] MEDS: predniSONE 5 MG TABLET PO SCH ×2 (08:45→21:43)
[2019-01-06] MEDS: Multivit/Ca/Min/Fe/FA 1 TAB TABLET PO SCH (08:46)
[2019-01-06] MEDS: valACYclovir 500 MG TABLET PO SCH ×3 (08:46→21:43)
[2019-01-06] MEDS: amLODIPine 5 MG TABLET PO SCH (08:46)
[2019-01-06] MEDS ORDERED: *HR* Methotrexate 2.5 MG TABLET PO SCH (15:37)
[2019-01-07] MEDS: valACYclovir 500 MG TABLET PO SCH ×3 (09:00→21:27)
[2019-01-07] MEDS: Multivit/Ca/Min/Fe/FA 1 TAB TABLET PO SCH (10:05)
[2019-01-07] MEDS: Fluconazole 100 MG TABLET PO SCH (10:05)
[2019-01-07] MEDS: predniSONE 5 MG TABLET PO SCH ×2 (10:05→21:29)
[2019-01-07] MEDS: amLODIPine 5 MG TABLET PO SCH (10:05)
[2019-01-08 06:08] LABS: Basophils % 0.1 %; Eosinophils # 0.1 K/mcL (0.0-0.6); Eosinophils % 1.2 %; Hematocrit 27.6 % (35.3-44.9); Hemoglobin 8.9 g/dL (11.5-15.4); Immature Granulocytes % 1.3 % (0-4); Lymphocytes # 1.4 K/mcL (0.6-4.6); Lymphocytes % 13.7 %; Mean Corpuscular HGB Conc 32.2 g/dL (31.6-35.5); Mean Corpuscular Hemoglobin 31.7 pg (28.0-33.3); Mean Corpuscular Volume 98.2 fL (83.0-100.0); Mean Platelet Volume 10.1 fL (9.4-12.4); Monocytes # 0.6 K/mcL (0.0-1.3); Monocytes % 5.8 %; Neutrophils # 7.7 K/mcL (1.6-8.9); Platelet Count 157 K/mcL (140-400); Red Blood Count 2.81 M/mcL (3.82-4.97); Red Cell Distribution Width 19.3 % (11.5-14.5); Segmented Neutrophils % 77.9 %; White Blood Count 9.9 K/mcL (4.3-11.1)
[2019-01-08 06:22] LABS: Macrocytosis Present (Not Present)
[2019-01-08 06:23] LABS: Anisocytosis 1+ (Not Present); Microcytosis Present (Not Present); Platelet Estimate Normal (Normal)
[2019-01-08 06:24] LABS: Reactive Lymphocytes Present (Not Present)
[2019-01-08 06:28] LABS: BUN/Creatinine Ratio 19 (6-26); Blood Urea Nitrogen 10 mg/dL (8-23); Calcium 8.3 mg/dL (8.6-10.3); Carbon Dioxide 29 mEq/L (23-29); Chloride 99 mEq/L (98-107); Glucose 109 mg/dL (70-105); Osmolality,Calculated 274 (280-300); Potassium 3.7 mEq/L (3.5-5.1); Sodium 132 mEq/L (136-145); eGFR For African Americans > 60 (> 60); eGFR For Non-African Americans > 60 (> 60)
[2019-01-08] MEDS: amLODIPine 5 MG TABLET PO SCH (08:14)
[2019-01-08] MEDS: Fluconazole 100 MG TABLET PO SCH (08:14)
[2019-01-08] MEDS: predniSONE 5 MG TABLET PO SCH ×2 (08:15→20:20)
[2019-01-08] MEDS: Multivit/Ca/Min/Fe/FA 1 TAB TABLET PO SCH (10:29)
[2019-01-08] MEDS: valACYclovir 500 MG TABLET PO SCH ×3 (10:29→20:20)
[2019-01-08] MEDS: Albuterol 2.5 MG/3 ML NEBULIZER IH PRN (11:50)
[2019-01-09] MEDS: Fluconazole 100 MG TABLET PO SCH (08:08)
[2019-01-09] MEDS: valACYclovir 500 MG TABLET PO SCH ×3 (08:08→21:14)
[2019-01-09] MEDS: Multivit/Ca/Min/Fe/FA 1 TAB TABLET PO SCH (08:08)
[2019-01-09] MEDS: amLODIPine 5 MG TABLET PO SCH (08:08)
[2019-01-09] MEDS: predniSONE 5 MG TABLET PO SCH ×2 (08:08→21:14)
[2019-01-09] MEDS: Acetaminophen 325 MG TABLET PO PRN (08:09)
[2019-01-10] MEDS: valACYclovir 500 MG TABLET PO SCH ×3 (09:10→21:10)
[2019-01-10] MEDS: Fluconazole 100 MG TABLET PO SCH (09:10)
[2019-01-10] MEDS: Multivit/Ca/Min/Fe/FA 1 TAB TABLET PO SCH (09:10)
[2019-01-10] MEDS: amLODIPine 5 MG TABLET PO SCH (09:10)
[2019-01-10] MEDS: predniSONE 5 MG TABLET PO SCH ×2 (09:11→21:11)
[2019-01-10] MEDS: Acetaminophen 325 MG TABLET PO PRN ×2 (09:19→18:15)
[2019-01-11] MEDS: predniSONE 5 MG TABLET PO SCH ×2 (08:32→20:50)
[2019-01-11] MEDS: Multivit/Ca/Min/Fe/FA 1 TAB TABLET PO SCH (08:32)
[2019-01-11] MEDS: valACYclovir 500 MG TABLET PO SCH ×2 (08:32→15:25)
[2019-01-11] MEDS: amLODIPine 5 MG TABLET PO SCH (08:32)
[2019-01-11] MEDS: Fluconazole 100 MG TABLET PO SCH (08:32)
[2019-01-12 05:16] LABS: Basophils % 0.2 %; Eosinophils % 0.5 %; Hematocrit 24.9 % (35.3-44.9); Immature Granulocytes % 1.1 % (0-4); Lymphocytes # 1.1 K/mcL (0.6-4.6); Lymphocytes % 17.3 %; Mean Corpuscular HGB Conc 32.1 g/dL (31.6-35.5); Mean Corpuscular Volume 99.6 fL (83.0-100.0); Mean Platelet Volume 9.6 fL (9.4-12.4); Monocytes # 0.6 K/mcL (0.0-1.3); Monocytes % 10.1 %; Neutrophils # 4.5 K/mcL (1.6-8.9); Platelet Count 217 K/mcL (140-400); Red Cell Distribution Width 20.7 % (11.5-14.5); Segmented Neutrophils % 70.8 %; White Blood Count 6.4 K/mcL (4.3-11.1)
[2019-01-12 05:53] LABS: BUN/Creatinine Ratio 19 (6-26); Blood Urea Nitrogen 11 mg/dL (8-23); Calcium 8.5 mg/dL (8.6-10.3); Carbon Dioxide 32 mEq/L (23-29); Chloride 96 mEq/L (98-107); Glucose 109 mg/dL (70-105); Osmolality,Calculated 272 (280-300); Potassium 4.1 mEq/L (3.5-5.1); Sodium 131 mEq/L (136-145); eGFR For African Americans > 60 (> 60); eGFR For Non-African Americans > 60 (> 60)
[2019-01-12] MEDS: Fluconazole 100 MG TABLET PO SCH (08:21)
[2019-01-12] MEDS: Multivit/Ca/Min/Fe/FA 1 TAB TABLET PO SCH (08:21)
[2019-01-12] MEDS: predniSONE 5 MG TABLET PO SCH ×2 (08:21→21:24)
[2019-01-12] MEDS: amLODIPine 5 MG TABLET PO SCH (08:21)
[2019-01-12] MEDS: Acetaminophen 325 MG TABLET PO PRN (12:36)
[2019-01-13] MEDS: Fluconazole 100 MG TABLET PO SCH (08:34)
[2019-01-13] MEDS: predniSONE 5 MG TABLET PO SCH ×2 (08:34→20:50)
[2019-01-13] MEDS: Multivit/Ca/Min/Fe/FA 1 TAB TABLET PO SCH (08:34)
[2019-01-13] MEDS: amLODIPine 5 MG TABLET PO SCH (08:34)
[2019-01-13] MEDS: Acetaminophen 325 MG TABLET PO PRN (08:34)
[2019-01-13] MEDS ORDERED: Furosemide 40 MG in 0.9 % Sodium Chloride 50 ML IV ONE ×2 (11:06→12:08)
[2019-01-13] MEDS ORDERED: Furosemide 40 MG/4 ML VIAL IVP ONE (12:36)
[2019-01-14 05:02] LABS: BUN/Creatinine Ratio 21 (6-26); Blood Urea Nitrogen 14 mg/dL (8-23); Calcium 8.8 mg/dL (8.6-10.3); Carbon Dioxide 37 mEq/L (23-29); Chloride 95 mEq/L (98-107); Glucose 117 mg/dL (70-105); Osmolality,Calculated 280 (280-300); Potassium 3.8 mEq/L (3.5-5.1); Sodium 134 mEq/L (136-145); eGFR For African Americans > 60 (> 60); eGFR For Non-African Americans > 60 (> 60)
[2019-01-14] MEDS: Acetaminophen 325 MG TABLET PO PRN (08:27)
[2019-01-14] MEDS: amLODIPine 5 MG TABLET PO SCH (08:27)
[2019-01-14] MEDS: Fluconazole 100 MG TABLET PO SCH (08:28)
[2019-01-14] MEDS: predniSONE 5 MG TABLET PO SCH ×2 (08:28→20:12)
[2019-01-14] MEDS: Multivit/Ca/Min/Fe/FA 1 TAB TABLET PO SCH (08:28)
[2019-01-15] MEDS: Fluconazole 100 MG TABLET PO SCH (08:09)
[2019-01-15] MEDS: predniSONE 5 MG TABLET PO SCH ×2 (08:09→20:10)
[2019-01-15] MEDS: Acetaminophen 325 MG TABLET PO PRN ×2 (08:10→20:09)
[2019-01-15] MEDS: Multivit/Ca/Min/Fe/FA 1 TAB TABLET PO SCH (08:10)
[2019-01-15] MEDS: amLODIPine 5 MG TABLET PO SCH (08:11)
[2019-01-16] MEDS: Acetaminophen 325 MG TABLET PO PRN (08:54)
[2019-01-16] MEDS: Multivit/Ca/Min/Fe/FA 1 TAB TABLET PO SCH (08:54)
[2019-01-16] MEDS: predniSONE 5 MG TABLET PO SCH (08:56)
[2019-01-16] MEDS: amLODIPine 5 MG TABLET PO SCH (08:56)
[2019-01-16] MEDS: Fluconazole 100 MG TABLET PO SCH (10:35)
[2019-01-17] MEDS: amLODIPine 5 MG TABLET PO SCH (08:12)
[2019-01-17] MEDS: Multivit/Ca/Min/Fe/FA 1 TAB TABLET PO SCH (08:12)
[2019-01-17] MEDS: predniSONE 5 MG TABLET PO SCH (08:13)
[2019-01-17] MEDS: Albuterol 2.5 MG/3 ML NEBULIZER IH PRN ×2 (11:10→21:10)
[2019-01-18 05:54] LABS: Basophils % 0.6 %; Eosinophils # 0.1 K/mcL (0.0-0.6); Eosinophils % 2.7 %; Hematocrit 27.5 % (35.3-44.9); Hemoglobin 8.7 g/dL (11.5-15.4); Immature Granulocytes % 4.6 % (0-4); Lymphocytes # 1.5 K/mcL (0.6-4.6); Mean Corpuscular HGB Conc 31.6 g/dL (31.6-35.5); Mean Corpuscular Hemoglobin 32.7 pg (28.0-33.3); Mean Corpuscular Volume 103.4 fL (83.0-100.0); Mean Platelet Volume 9.2 fL (9.4-12.4); Monocytes # 1.2 K/mcL (0.0-1.3); Monocytes % 23.3 %; Neutrophils # 2.1 K/mcL (1.6-8.9); Platelet Count 308 K/mcL (140-400); Red Blood Count 2.66 M/mcL (3.82-4.97); Red Cell Distribution Width 21.7 % (11.5-14.5); Segmented Neutrophils % 39.8 %; White Blood Count 5.2 K/mcL (4.3-11.1)
[2019-01-18 06:11] LABS: BUN/Creatinine Ratio 17 (6-26); Blood Urea Nitrogen 11 mg/dL (8-23); Calcium 8.6 mg/dL (8.6-10.3); Carbon Dioxide 33 mEq/L (23-29); Chloride 97 mEq/L (98-107); Glucose 103 mg/dL (70-105); Osmolality,Calculated 280 (280-300); Potassium 3.9 mEq/L (3.5-5.1); Sodium 135 mEq/L (136-145); eGFR For African Americans > 60 (> 60); eGFR For Non-African Americans > 60 (> 60)
[2019-01-18] MEDS: Multivit/Ca/Min/Fe/FA 1 TAB TABLET PO SCH (07:35)
[2019-01-18] MEDS: predniSONE 5 MG TABLET PO SCH (07:35)
[2019-01-18] MEDS: Acetaminophen 325 MG TABLET PO PRN (07:36)
[2019-01-18] MEDS: amLODIPine 5 MG TABLET PO SCH (07:36)
[2019-01-19] MEDS: Albuterol 2.5 MG/3 ML NEBULIZER IH PRN ×3 (07:18→20:54)
[2019-01-19] MEDS: predniSONE 5 MG TABLET PO SCH (08:24)
[2019-01-19] MEDS: Multivit/Ca/Min/Fe/FA 1 TAB TABLET PO SCH (08:25)
[2019-01-19] MEDS: Acetaminophen 325 MG TABLET PO PRN (08:25)
[2019-01-19] MEDS: amLODIPine 5 MG TABLET PO SCH (08:25)
[2019-01-20] MEDS: Albuterol 2.5 MG/3 ML NEBULIZER IH PRN ×3 (05:02→20:32)
[2019-01-20] MEDS: predniSONE 5 MG TABLET PO SCH (09:04)
[2019-01-20] MEDS: amLODIPine 5 MG TABLET PO SCH (09:04)
[2019-01-20] MEDS: Multivit/Ca/Min/Fe/FA 1 TAB TABLET PO SCH (09:04)
[2019-01-21] MEDS: Albuterol 2.5 MG/3 ML NEBULIZER IH PRN ×2 (07:37→12:58)
[2019-01-21] MEDS: amLODIPine 5 MG TABLET PO SCH (08:59)
[2019-01-21] MEDS: predniSONE 5 MG TABLET PO SCH (09:00)
[2019-01-21] MEDS: Multivit/Ca/Min/Fe/FA 1 TAB TABLET PO SCH (09:00)
[2019-01-22] MEDS: Albuterol 2.5 MG/3 ML NEBULIZER IH PRN (07:36)
[2019-01-22 07:44] VITALS: BP 128/71
[2019-01-22] MEDS: amLODIPine 5 MG TABLET PO SCH (08:37)
[2019-01-22] MEDS: Acetaminophen 325 MG TABLET PO PRN (08:37)
[2019-01-22] MEDS: Multivit/Ca/Min/Fe/FA 1 TAB TABLET PO SCH (08:37)
== END 2019-01-22 15:02 | disposition home health service (06) | DRG 194 ==
LOC: INPGRE 01-05 14:43
PROVIDERS: ADMIT Family Medicine; ATTEND Family Medicine

== ENCOUNTER 2019-03-22 22:51 | Inpatient (IN) ==
[2019-03-22] MEDS ORDERED: methylPREDNISolone 125 MG/2 ML VIAL IVP ONE (23:07)
[2019-03-22] MEDS ORDERED: Ipratropium/Albuterol Neb 3 ML IH ONE (23:07)
[2019-03-22] MEDS ORDERED: Furosemide 40 MG/4 ML VIAL IVP ONE (23:07)
[2019-03-22 23:46] LABS: Basophils % 0.2 %; Eosinophils % 0.1 %; Hematocrit 28.2 % (35.3-44.9); Hemoglobin 9.1 g/dL (11.5-15.4); Immature Granulocytes % 0.8 % (0-4); Lymphocytes # 0.8 K/mcL (0.6-4.6); Lymphocytes % 5.9 %; Mean Corpuscular HGB Conc 32.3 g/dL (31.6-35.5); Mean Corpuscular Hemoglobin 31.6 pg (28.0-33.3); Mean Corpuscular Volume 97.9 fL (83.0-100.0); Mean Platelet Volume 9.1 fL (9.4-12.4); Monocytes # 1.7 K/mcL (0.0-1.3); Monocytes % 12.1 %; Neutrophils # 11.4 K/mcL (1.6-8.9); Platelet Count 394 K/mcL (140-400); Red Blood Count 2.88 M/mcL (3.82-4.97); Red Cell Distribution Width 15.6 % (11.5-14.5); Segmented Neutrophils % 80.9 %; White Blood Count 14.1 K/mcL (4.3-11.1)
[2019-03-22 23:48] LABS: ABG Base Excess -1 mEq/L (-2 to 3); ABG HCO3 23 mEq/L (21-27); ABG Oxygen Saturation 98 % (95-98); ABG PCO2 38 mmHg (35-45); ABG PO2 104 mmHg (85-104); ABG TCO2 25 mEq/L (20-26)
[2019-03-22 23:48] LABS: INR 1.3; Prothrombin Time 14.4 Seconds (9.4-12.1)
[2019-03-23] LABS: Albumin 3.6 g/dL (3.5-5.7); Albumin/Globulin Ratio 1.4 (1.1-2.2); Bilirubin,Total 0.3 mg/dL (0.3-1.0); Calcium 9.2 mg/dL (8.6-10.3); Globulin 2.6 g/dL (2.4-3.5); Potassium 4.6 mEq/L (3.5-5.1); Total Protein 6.2 g/dL (6.4-8.9)
[2019-03-23] MEDS ORDERED: cefTRIAXone 1,000 MG in 0.9 % Sodium Chloride Mini Bag 100 ML IVPB ONE (00:45)
[2019-03-23] MEDS ORDERED: Azithromycin 500 MG in 0.9 % Sodium Chloride 250 ML IVPB SCH (01:00)
[2019-03-23] MEDS ORDERED: Ondansetron ODT 4 MG TAB.RAPDIS SL PRN (01:56)
[2019-03-23] MEDS ORDERED: Saline Nasal Spray 44 ML BOTTLE NS PRN ×2 (01:56→02:29)
[2019-03-23] MEDS ORDERED: Naloxone 0.4 MG/ML INJ IVP PRN (01:56)
[2019-03-23] MEDS ORDERED: NON-FORMULARY MEDICATION 1 EACH EACH (Alendronate Sodium 70 MG) PO SCH (01:56)
[2019-03-23] MEDS: 0.9 % Sodium Chloride 1,000 ML IVC SCH ×2 (03:03→16:38)
[2019-03-23 03:17] LABS: Bilirubin,Urine Negative (Negative); Blood,Urine Negative (Negative); Clarity,Urine Clear (Clear); Color,Urine Yellow (Yellow); Glucose,Urine (UA) Normal (Normal); Ketones,Urine Negative (Negative); Leukocyte Esterase,Urine Negative (Negative); Nitrite,Urine Negative (Negative); Protein,Urine Negative (Neg-Trace); Specific Gravity,Urine 1.015 (1.010-1.025); Urobilinogen,Urine Normal (Normal)
[2019-03-23] MEDS: Ipratropium/Albuterol Neb 3 ML IH SCH ×5 (04:24→21:25)
[2019-03-23] MEDS: *HR* Enoxaparin 30 MG/0.3 ML SYRINGE SQ SCH (05:04)
[2019-03-23 05:22] LABS: Basophils % 0.1 %; Hematocrit 27.6 % (35.3-44.9); Hemoglobin 8.8 g/dL (11.5-15.4); Immature Granulocytes % 0.7 % (0-4); Lymphocytes # 0.4 K/mcL (0.6-4.6); Lymphocytes % 2.7 %; Mean Corpuscular HGB Conc 31.9 g/dL (31.6-35.5); Mean Corpuscular Hemoglobin 31.3 pg (28.0-33.3); Mean Corpuscular Volume 98.2 fL (83.0-100.0); Mean Platelet Volume 9.1 fL (9.4-12.4); Monocytes # 0.8 K/mcL (0.0-1.3); Neutrophils # 14.9 K/mcL (1.6-8.9); Platelet Count 364 K/mcL (140-400); Red Blood Count 2.81 M/mcL (3.82-4.97); Red Cell Distribution Width 15.5 % (11.5-14.5); Segmented Neutrophils % 91.5 %; White Blood Count 16.3 K/mcL (4.3-11.1)
[2019-03-23 05:38] LABS: Potassium 4.2 mEq/L (3.5-5.1)
[2019-03-23] MEDS: Furosemide 40 MG TABLET PO SCH ×2 (09:23→20:04)
[2019-03-23] MEDS: amLODIPine 5 MG TABLET PO SCH (09:23)
[2019-03-23 09:36] LABS: ABG Base Excess -1 mEq/L (-2 to 3); ABG HCO3 25 mEq/L (21-27); ABG Oxygen Saturation 81 % (95-98); ABG PCO2 46 mmHg (35-45); ABG PH 7.34 pH Units (7.32-7.45); ABG PO2 48 mmHg (85-104); ABG TCO2 27 mEq/L (20-26)
[2019-03-23] MEDS: cefTRIAXone 1,000 MG in 0.9 % Sodium Chloride Mini Bag 100 ML IVPB SCH (18:33)
[2019-03-23] MEDS: Acetaminophen 325 MG TABLET PO PRN (21:25)
[2019-03-23] MEDS: Azithromycin 500 MG in 0.9 % Sodium Chloride 250 ML IVPB SCH (21:25)
[2019-03-24] MEDS: Ipratropium/Albuterol Neb 3 ML IH SCH ×5 (00:01→15:57)
[2019-03-24] MEDS ORDERED: Azithromycin 500 MG in 0.9 % Sodium Chloride 250 ML IVPB SCH (01:00)
[2019-03-24] MEDS: *HR* Enoxaparin 30 MG/0.3 ML SYRINGE SQ SCH (05:45)
[2019-03-24 06:02] LABS: Basophils % 0.1 %; Hematocrit 25.1 % (35.3-44.9); Hemoglobin 8.1 g/dL (11.5-15.4); Immature Granulocytes % 1.7 % (0-4); Lymphocytes # 0.4 K/mcL (0.6-4.6); Lymphocytes % 2.9 %; Mean Corpuscular HGB Conc 32.3 g/dL (31.6-35.5); Mean Corpuscular Hemoglobin 31.2 pg (28.0-33.3); Mean Corpuscular Volume 96.5 fL (83.0-100.0); Mean Platelet Volume 9.1 fL (9.4-12.4); Monocytes % 6.7 %; Neutrophils # 12.9 K/mcL (1.6-8.9); Platelet Count 377 K/mcL (140-400); Red Cell Distribution Width 15.5 % (11.5-14.5); Segmented Neutrophils % 88.6 %; White Blood Count 14.5 K/mcL (4.3-11.1)
[2019-03-24] MEDS ORDERED: *HR* Methotrexate 2.5 MG TABLET PO SCH (08:00)
[2019-03-24] MEDS: Furosemide 40 MG TABLET PO SCH ×2 (08:18→20:06)
[2019-03-24] MEDS: amLODIPine 5 MG TABLET PO SCH (08:18)
[2019-03-24 10:18] LABS: Calcium 8.2 mg/dL (8.6-10.3); Potassium 3.9 mEq/L (3.5-5.1)
[2019-03-24] MEDS: Carbamide Peroxide 150 DROP/15 ML BOTTLE RIGHT EAR SCH ×2 (13:56→20:08)
[2019-03-24] MEDS: cefTRIAXone 1,000 MG in 0.9 % Sodium Chloride Mini Bag 100 ML IVPB SCH (18:06)
[2019-03-24] MEDS: Azithromycin 500 MG in 0.9 % Sodium Chloride 250 ML IVPB SCH (20:05)
[2019-03-24] MEDS: Acetaminophen 325 MG TABLET PO PRN (20:05)
[2019-03-24] MEDS: Ipratropium/Albuterol Neb 3 ML IH PRN (20:05)
[2019-03-25] MEDS: Acetaminophen 325 MG TABLET PO PRN ×2 (05:06→19:46)
[2019-03-25] MEDS: *HR* Enoxaparin 30 MG/0.3 ML SYRINGE SQ SCH (05:07)
[2019-03-25 05:32] LABS: Basophils % 0.1 %; Eosinophils # 0.1 K/mcL (0.0-0.6); Eosinophils % 0.5 %; Hematocrit 26.1 % (35.3-44.9); Hemoglobin 8.4 g/dL (11.5-15.4); Lymphocytes # 1.2 K/mcL (0.6-4.6); Lymphocytes % 11.1 %; Mean Corpuscular HGB Conc 32.2 g/dL (31.6-35.5); Mean Corpuscular Hemoglobin 31.7 pg (28.0-33.3); Mean Corpuscular Volume 98.5 fL (83.0-100.0); Mean Platelet Volume 8.9 fL (9.4-12.4); Monocytes # 1.2 K/mcL (0.0-1.3); Platelet Count 441 K/mcL (140-400); Red Blood Count 2.65 M/mcL (3.82-4.97); Red Cell Distribution Width 15.7 % (11.5-14.5); Segmented Neutrophils % 75.3 %; White Blood Count 10.6 K/mcL (4.3-11.1)
[2019-03-25 05:47] LABS: BUN/Creatinine Ratio 28 (6-26); Blood Urea Nitrogen 29 mg/dL (8-23); Calcium 8.7 mg/dL (8.6-10.3); Carbon Dioxide 26 mEq/L (23-29); Chloride 105 mEq/L (98-107); Glucose 103 mg/dL (70-105); Osmolality,Calculated 290 (280-300); Potassium 4.3 mEq/L (3.5-5.1); Sodium 137 mEq/L (136-145); eGFR For African Americans > 60 (> 60); eGFR For Non-African Americans 51 (> 60)
[2019-03-25] MEDS: Furosemide 40 MG TABLET PO SCH ×2 (08:42→19:46)
[2019-03-25] MEDS: Carbamide Peroxide 150 DROP/15 ML BOTTLE RIGHT EAR SCH ×2 (08:42→19:31)
[2019-03-25] MEDS: amLODIPine 5 MG TABLET PO SCH (08:42)
[2019-03-25] MEDS: cefTRIAXone 1,000 MG in 0.9 % Sodium Chloride Mini Bag 100 ML IVPB SCH (17:12)
[2019-03-25] MEDS: Azithromycin 500 MG in 0.9 % Sodium Chloride 250 ML IVPB SCH (19:46)
[2019-03-25] MEDS: Ipratropium/Albuterol Neb 3 ML IH PRN (19:48)
[2019-03-26] MEDS: *HR* Enoxaparin 30 MG/0.3 ML SYRINGE SQ SCH (05:49)
[2019-03-26] MEDS: Acetaminophen 325 MG TABLET PO PRN (05:49)
[2019-03-26] MEDS: Furosemide 40 MG TABLET PO SCH (09:03)
[2019-03-26] MEDS: amLODIPine 5 MG TABLET PO SCH (09:04)
[2019-03-26] MEDS: Carbamide Peroxide 150 DROP/15 ML BOTTLE RIGHT EAR SCH (09:06)
[2019-03-26 11:54] VITALS: BP 123/56
== END 2019-03-26 13:37 | disposition home health service (06) | DRG 194 ==
LOC: INPGRE 22:51 → EMEROOGRE 22:51 → INPGRE 03-23 01:56
PROVIDERS: ADMIT Family Medicine; ATTEND Family Medicine

== ENCOUNTER 2019-04-11 21:50 | Inpatient (IN) ==
[2019-04-11] MEDS ORDERED: 0.9 % Sodium Chloride 1,000 ML IVC ONE (22:08)
[2019-04-11] MEDS ORDERED: Levalbuterol Neb 1.25 MG/3 ML ONE (22:13)
[2019-04-11] MEDS ORDERED: Levalbuterol Neb 1.25 MG/3 ML IH STA (22:13)
[2019-04-11 22:29] LABS: Basophils % 0.1 %; Hematocrit 29.1 % (35.3-44.9); Hemoglobin 9.4 g/dL (11.5-15.4); Lymphocytes # 0.5 K/mcL (0.6-4.6); Lymphocytes % 2.1 %; Mean Corpuscular HGB Conc 32.3 g/dL (31.6-35.5); Mean Corpuscular Hemoglobin 31.2 pg (28.0-33.3); Mean Corpuscular Volume 96.7 fL (83.0-100.0); Mean Platelet Volume 9.3 fL (9.4-12.4); Monocytes % 7.8 %; Neutrophils # 22.4 K/mcL (1.6-8.9); Platelet Count 335 K/mcL (140-400); Red Blood Count 3.01 M/mcL (3.82-4.97); Red Cell Distribution Width 16.2 % (11.5-14.5); White Blood Count 25.2 K/mcL (4.3-11.1)
[2019-04-11] MEDS ORDERED: *HR* HYDROcodone/Acet 5/325 mg TABLET PO ONE (22:34)
[2019-04-11] MEDS ORDERED: Acetaminophen 325 MG TABLET PO ONE (22:35)
[2019-04-11 22:36] LABS: VBG HCO3 23 mEq/L (21-27); VBG PCO2 32 mmHg (41-51); VBG PH 7.47 pH Units (7.32-7.42); VBG PO2 48 mmHg (25-50)
[2019-04-11 22:47] LABS: Albumin 3.8 g/dL (3.5-5.7); Albumin/Globulin Ratio 1.4 (1.1-2.2); Bilirubin,Direct 0.1 mg/dL (0.0-0.2); Bilirubin,Indirect 0.5 mg/dL (0.0-1.0); Bilirubin,Total 0.6 mg/dL (0.3-1.0); Calcium 9.2 mg/dL (8.6-10.3); Globulin 2.8 g/dL (2.4-3.5); Potassium 4.6 mEq/L (3.5-5.1); Total Protein 6.6 g/dL (6.4-8.9)
[2019-04-11 22:48] LABS: Troponin I 0.03 ng/mL (< 0.04)
[2019-04-11] MEDS ORDERED: levoFLOXacin 750 MG/150 ML 750 MG/150 ML BAG IVPB ONE (23:18)
[2019-04-12 00:17] LABS: Bilirubin,Urine Negative (Negative); Blood,Urine Negative (Negative); Clarity,Urine Clear (Clear); Color,Urine Yellow (Yellow); Glucose,Urine (UA) Normal (Normal); Ketones,Urine Negative (Negative); Leukocyte Esterase,Urine Negative (Negative); Nitrite,Urine Negative (Negative); Protein,Urine Negative (Neg-Trace); Specific Gravity,Urine 1.015 (1.010-1.025); Urobilinogen,Urine Normal (Normal)
[2019-04-12] MEDS ORDERED: D5% in 0.45% NACL 1,000 ML IVC SCH (00:46)
[2019-04-12] MEDS ORDERED: Levalbuterol Neb 1.25 MG/3 ML ONE (00:46)
[2019-04-12] MEDS ORDERED: Acetaminophen 325 MG TABLET PO PRN (00:46)
[2019-04-12] MEDS ORDERED: Ondansetron ODT 4 MG TAB.RAPDIS SL PRN (00:46)
[2019-04-12] MEDS ORDERED: MOM Conc 10 ML UD.LIQ PO PRN (00:46)
[2019-04-12] MEDS ORDERED: Naloxone 0.4 MG/ML INJ IVP PRN (00:46)
[2019-04-12] MEDS: 0.9 % Sodium Chloride 1,000 ML IVC SCH ×2 (01:50→21:36)
[2019-04-12] MEDS: Ipratropium/Albuterol Neb 3 ML IH SCH ×5 (04:15→21:36)
[2019-04-12 06:01] LABS: Basophils % 0.1 %; Hematocrit 25.9 % (35.3-44.9); Hemoglobin 8.4 g/dL (11.5-15.4); Immature Granulocytes % 4.2 % (0-4); Lymphocytes # 0.3 K/mcL (0.6-4.6); Lymphocytes % 1.3 %; Mean Corpuscular HGB Conc 32.4 g/dL (31.6-35.5); Mean Corpuscular Hemoglobin 31.2 pg (28.0-33.3); Mean Corpuscular Volume 96.3 fL (83.0-100.0); Mean Platelet Volume 9.1 fL (9.4-12.4); Monocytes # 0.9 K/mcL (0.0-1.3); Platelet Count 258 K/mcL (140-400); Red Blood Count 2.69 M/mcL (3.82-4.97); Red Cell Distribution Width 16.2 % (11.5-14.5); Segmented Neutrophils % 90.4 %; White Blood Count 21.3 K/mcL (4.3-11.1)
[2019-04-12 06:03] LABS: Neutrophils # 19.3 K/mcL (1.6-8.9)
[2019-04-12 06:20] LABS: BUN/Creatinine Ratio 16 (6-26); Blood Urea Nitrogen 31 mg/dL (8-23); Carbon Dioxide 24 mEq/L (23-29); Chloride 101 mEq/L (98-107); Glucose 159 mg/dL (70-105); Osmolality,Calculated 286 (280-300); Sodium 133 mEq/L (136-145); Troponin I < 0.03 ng/mL (< 0.04); eGFR For African Americans 30 (> 60); eGFR For Non-African Americans 25 (> 60)
[2019-04-12] MEDS ORDERED: Furosemide 40 MG TABLET PO SCH (08:00)
[2019-04-12] MEDS: amLODIPine 5 MG TABLET PO SCH (08:10)
[2019-04-12] MEDS: Multivit/Ca/Min/Fe/FA 1 TAB TABLET PO SCH (08:11)
[2019-04-13] MEDS: Ipratropium/Albuterol Neb 3 ML IH SCH ×7 (00:15→23:43)
[2019-04-13] MEDS: *HR* Enoxaparin 30 MG/0.3 ML SYRINGE SQ SCH (04:14)
[2019-04-13 05:36] LABS: Basophils % 0.1 %; Hematocrit 27.9 % (35.3-44.9); Hemoglobin 8.7 g/dL (11.5-15.4); Immature Granulocytes % 1.1 % (0-4); Lymphocytes # 0.6 K/mcL (0.6-4.6); Lymphocytes % 3.8 %; Mean Corpuscular HGB Conc 31.2 g/dL (31.6-35.5); Mean Corpuscular Hemoglobin 31.3 pg (28.0-33.3); Mean Corpuscular Volume 100.4 fL (83.0-100.0); Mean Platelet Volume 9.7 fL (9.4-12.4); Monocytes # 1.6 K/mcL (0.0-1.3); Monocytes % 10.4 %; Neutrophils # 12.6 K/mcL (1.6-8.9); Platelet Count 237 K/mcL (140-400); Red Blood Count 2.78 M/mcL (3.82-4.97); Red Cell Distribution Width 16.6 % (11.5-14.5); Segmented Neutrophils % 84.6 %; White Blood Count 14.9 K/mcL (4.3-11.1)
[2019-04-13 05:49] LABS: Potassium 3.7 mEq/L (3.5-5.1)
[2019-04-13] MEDS ORDERED: ALENDRONATE 70MG PO SCH (06:30)
[2019-04-13] MEDS: Multivit/Ca/Min/Fe/FA 1 TAB TABLET PO SCH (10:23)
[2019-04-13] MEDS: amLODIPine 5 MG TABLET PO SCH (10:23)
[2019-04-13] MEDS: Furosemide 40 MG TABLET PO SCH (10:23)
[2019-04-14] MEDS ORDERED: levoFLOXacin 500 MG/100 ML 500 MG/100 ML BAG IVPB SCH (01:00)
[2019-04-14] MEDS: Ipratropium/Albuterol Neb 3 ML IH SCH ×6 (01:07→20:14)
[2019-04-14] MEDS: *HR* Enoxaparin 30 MG/0.3 ML SYRINGE SQ SCH (04:17)
[2019-04-14] MEDS ORDERED: *HR* Methotrexate 2.5 MG TABLET PO SCH (09:00)
[2019-04-14 09:09] LABS: Basophils % 0.2 %; Eosinophils # 0.1 K/mcL (0.0-0.6); Hematocrit 29.8 % (35.3-44.9); Hemoglobin 9.1 g/dL (11.5-15.4); Immature Granulocytes % 2.8 % (0-4); Lymphocytes # 0.8 K/mcL (0.6-4.6); Lymphocytes % 5.4 %; Mean Corpuscular HGB Conc 30.5 g/dL (31.6-35.5); Mean Corpuscular Hemoglobin 30.8 pg (28.0-33.3); Mean Platelet Volume 9.7 fL (9.4-12.4); Monocytes # 1.4 K/mcL (0.0-1.3); Monocytes % 10.1 %; Neutrophils # 11.2 K/mcL (1.6-8.9); Platelet Count 289 K/mcL (140-400); Red Blood Count 2.95 M/mcL (3.82-4.97); Red Cell Distribution Width 16.7 % (11.5-14.5); Segmented Neutrophils % 80.5 %; White Blood Count 13.9 K/mcL (4.3-11.1)
[2019-04-14] MEDS: Furosemide 40 MG TABLET PO SCH (09:25)
[2019-04-14] MEDS: Multivit/Ca/Min/Fe/FA 1 TAB TABLET PO SCH (09:25)
[2019-04-14] MEDS: amLODIPine 5 MG TABLET PO SCH (09:25)
[2019-04-14] MEDS ORDERED: hydrOXYzine pamoate 25 MG CAPSULE PO ONE (10:24)
[2019-04-14 11:14] LABS: BUN/Creatinine Ratio 26 (6-26); Blood Urea Nitrogen 23 mg/dL (8-23); Calcium 8.9 mg/dL (8.6-10.3); Carbon Dioxide 23 mEq/L (23-29); Chloride 102 mEq/L (98-107); Glucose 112 mg/dL (70-105); Osmolality,Calculated 284 (280-300); Potassium 3.5 mEq/L (3.5-5.1); Sodium 135 mEq/L (136-145); eGFR For African Americans > 60 (> 60); eGFR For Non-African Americans 60 (> 60)
[2019-04-15] MEDS: Ipratropium/Albuterol Neb 3 ML IH SCH ×6 (00:59→20:07)
[2019-04-15] MEDS: *HR* Enoxaparin 30 MG/0.3 ML SYRINGE SQ SCH (05:38)
[2019-04-15] MEDS: Furosemide 40 MG TABLET PO SCH (09:05)
[2019-04-15] MEDS: Multivit/Ca/Min/Fe/FA 1 TAB TABLET PO SCH (09:05)
[2019-04-15] MEDS: amLODIPine 5 MG TABLET PO SCH (09:05)
[2019-04-15] MEDS ORDERED: hydrOXYzine pamoate 25 MG CAPSULE PO PRN ×2 (09:31→21:31)
[2019-04-15] MEDS: levoFLOXacin 500 MG TABLET PO SCH (11:30)
[2019-04-16] MEDS: Ipratropium/Albuterol Neb 3 ML IH SCH ×5 (01:13→15:56)
[2019-04-16] MEDS ORDERED: *HR* Enoxaparin 40 MG/0.4 ML SYRINGE SQ SCH (06:00)
[2019-04-16 06:03] LABS: Basophils # 0.1 K/mcL (0.0-0.2); Basophils % 0.4 %; Eosinophils # 0.7 K/mcL (0.0-0.6); Eosinophils % 5.1 %; Hematocrit 28.3 % (35.3-44.9); Hemoglobin 9.1 g/dL (11.5-15.4); Immature Granulocytes % 9.5 % (0-4); Lymphocytes # 1.8 K/mcL (0.6-4.6); Lymphocytes % 12.9 %; Mean Corpuscular HGB Conc 32.2 g/dL (31.6-35.5); Mean Corpuscular Hemoglobin 30.7 pg (28.0-33.3); Mean Corpuscular Volume 95.6 fL (83.0-100.0); Mean Platelet Volume 9.7 fL (9.4-12.4); Monocytes # 2.1 K/mcL (0.0-1.3); Monocytes % 15.1 %; Platelet Count 323 K/mcL (140-400); Red Blood Count 2.96 M/mcL (3.82-4.97); Red Cell Distribution Width 16.6 % (11.5-14.5)
[2019-04-16 06:18] LABS: Alanine Aminotransferase 13 Units/L (7-52); Albumin 3.1 g/dL (3.5-5.7); Albumin/Globulin Ratio 1.3 (1.1-2.2); Alkaline Phosphatase 43 Units/L (34-104); Aspartate Amino Transferase 18 Units/L (13-39); BUN/Creatinine Ratio 21 (6-26); Bilirubin,Total 0.2 mg/dL (0.3-1.0); Blood Urea Nitrogen 18 mg/dL (8-23); Carbon Dioxide 30 mEq/L (23-29); Chloride 100 mEq/L (98-107); Globulin 2.3 g/dL (2.4-3.5); Glucose 106 mg/dL (70-105); Macrocytosis Present (Not Present); Osmolality,Calculated 284 (280-300); Platelet Estimate Normal (Normal); Potassium 3.8 mEq/L (3.5-5.1); Sodium 136 mEq/L (136-145); Total Protein 5.4 g/dL (6.4-8.9); eGFR For African Americans > 60 (> 60); eGFR For Non-African Americans > 60 (> 60)
[2019-04-16] MEDS: Multivit/Ca/Min/Fe/FA 1 TAB TABLET PO SCH (08:18)
[2019-04-16] MEDS: levoFLOXacin 500 MG TABLET PO SCH (08:19)
[2019-04-16] MEDS: Furosemide 40 MG TABLET PO SCH (08:19)
[2019-04-16] MEDS: amLODIPine 5 MG TABLET PO SCH (08:19)
[2019-04-16 17:25] VITALS: BP 102/64
[2019-04-17] MEDS ORDERED: levoFLOXacin 750 MG TABLET PO SCH (09:00)
[2019-04-18 11:17] LABS: Mycoplasma pneumoniae IgG 0.05 U/L (<=0.09)
== END 2019-04-16 18:20 | disposition home health service (06) | DRG 815 ==
LOC: EMEROOGRE 21:50 → INPGRE 04-12 00:28
PROVIDERS: ADMIT Family Medicine; ATTEND Family Medicine